=== PATIENT | male | born 1935 | race American Indian/Alaskan Native ===

== ENCOUNTER 2016-07-22 23:19 | Emergency (ER) | payer MEDICARE, OTHER ==
[2016-07-22 23:42] VITALS: RESP 20
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
[2016-07-23 02:30] VITALS: BP 146/73; PULSE 76; TEMP 97.5; O2SAT 97
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
== END 2016-07-23 02:55 | disposition home or self-care (01) ==
LOC: C.ER 23:19
DX: Z77.098 Contact with and (suspected) exposure to other hazardous, chiefly nonmedicinal, chemicals (principal)

== ENCOUNTER 2016-12-10 04:03 | Inpatient (IN) | payer MEDICARE, OTHER ==
[2016-12-10 05:15] LABS: BASO # 0.1 K/uL (0.0-0.2); LYMPH # 0.2 K/uL (1.0-4.3); MEAN CORPUSCULAR HGB CONC 33.2 g/dL (33.0-37.0)
[2016-12-10 05:23] LABS: BASO % 0.6 % (0.0-2.0); LYMPH % 1.4 % (20.0-40.0); MEAN CELL VOLUME 86.9 fL (80.0-94.0); MEAN CORPUSCULAR HEMOGLOBIN 28.9 pg (27.0-31.0); MEAN PLATELET VOLUME 8.8 fL (7.2-11.7); MONO # 0.2 K/uL (0.0-0.8); MONO % 1.4 % (0.0-10.0); NRBC % 0.1 % (0.0-2.0); PLATELET COUNT 153 K/uL (130-400); RED CELL DISTRIBUTION WIDTH 15.6 % (11.5-14.5); WHITE BLOOD COUNT 16.1 K/uL (4.8-10.8)
--- NOTE | 2016-12-10 06:12 | C.PDOC ---
History Of Present Illness As per EMS pt c/o of low abd pain, and constipation. Denies fever, vomiting, diarrhea. Time Seen by Provider: 12/10/16 04:21 Chief Complaint (Nursing): Abdominal Pain History Per: Patient History/Exam Limitations: other (? alzheimers) Current Symptoms Are (Timing): Still Present Past Medical History Vital Signs: Last Vital Signs Temp 99.8 F H 12/10/16 04:10 Pulse 89 12/10/16 04:10 Resp 18 12/10/16 04:10 BP 139/78 12/10/16 04:10 Pulse Ox 98 12/10/16 06:12 - Medical History PMH: Benign Prostatic Hyperplasia, HTN, Hyperlipidemia, Parkinson's Disease Family History: States: Unknown Family Hx - Social History Hx Alcohol Use: No Hx Substance Use: No - Immunization History Hx Tetanus Toxoid Vaccination: No Hx Influenza Vaccination: No Hx Pneumococcal Vaccination: No Review Of Systems Constitutional: Negative for: Fever, Chills Gastrointestinal: Positive for: Abdominal Pain (lower ), Constipation (few days) . Negative for: Nausea, Vomiting Genitourinary: Negative for: Dysuria, Hematuria Physical Exam - Physical Exam Appears: Well, No Acute Distress Skin: Normal Color Head: Atraumatic Eye(s): bilateral: Normal Inspection, PERRL Oral Mucosa: Moist Cardiovascular: Rhythm Regular Respiratory: Normal Breath Sounds, No Rales, No Wheezing Gastrointestinal/Abdominal: Distention (protrusion to entire lower abd- firm mass), No Guarding, No Rebound Back: Normal Inspection, No CVA Tenderness Neurological/Psych: No Oriented x3 (Pt alert and oriented to person, not to place and time) ED Course And Treatment - Laboratory Results Result Diagrams: 12/10/16 05:11 12/10/16 05:11 O2 Sat by Pulse Oximetry: 98 Pulse Ox Interpretation: Normal - Other Rad Obstructive series X-Ray: Interpreted by Me, Viewed By Me Interpretation: Distended loops of bowels , no stool impaction. CXR normal Progress Note: Pending labs, and CT . Pt s/o to HARRY valladares. Pt with WBC 16.1, and K 2.9 and KCl PO. Will follow up with PMD Disposition - Disposition Disposition Time: 07:12 Condition: STABLE Forms: Tern (Slovak) - Clinical Impression Clinical Impression: Abdominal pain, Abdominal distension Physician Patient Turnover Patient Signed Over To: Chichi Valladares Handoff Comments: Pending CT and admission
[2016-12-10 06:16] LABS: ALKALINE PHOSPHATASE 321 U/L (38-126); ALT/SGPT 79 U/L (21-72); AST/SGOT 88 U/L (17-59); BILIRUBIN,TOTAL 5.2 mg/dL (0.2-1.3); BLOOD UREA NITROGEN 16 mg/dL (9-20); CALCIUM 7.9 mg/dl (8.6-10.4); CARBON DIOXIDE 30 mmol/L (22-30); CHLORIDE 89 mmol/L (98-107); GFR AFRICAN-AMERICAN > 60; GLUCOSE,RANDOM 115 mg/dL (75-110); POTASSIUM 2.9 mmol/L (3.6-5.2); SODIUM 134 mmol/L (132-148)
[2016-12-10 06:18] LABS: TOTAL PROTEIN 6.1 g/dL (6.3-8.3)
[2016-12-10] MEDS ORDERED: Iodixanol 320 MG/ML 100 ML BOTTLE IV ONE (06:37)
[2016-12-10 06:43] LABS: RBC URINE 2 /hpf (0-3); URINE BACTERIA RARE (<OCC); URINE BILIRUBIN 2+ (NEGATIVE); URINE BLOOD NEGATIVE (NEGATIVE); URINE COLOR Amber (YELLOW); URINE GLUCOSE (UA) NORMAL (Normal); URINE KETONE NEGATIVE (NEGATIVE); URINE LEUKOCYTE ESTERASE NEG Leu/uL (Negative); URINE PROTEIN 1+ mg/dL (NEGATIVE); WBC URINE 5 /hpf (0-5)
[2016-12-10] MEDS ORDERED: Potassium Chloride 20 mEq/15 ml LIQ UD PO STA (06:51)
[2016-12-10] MEDS ORDERED: Potassium Chloride 20 mEq/15 ml LIQ UD ONE (06:57)
[2016-12-10 07:15] LABS: NEUTROPHIL 95 % (50-75); TOTAL CELLS COUNTED 100
--- NOTE | 2016-12-10 07:41 | CT ---
EXAM: CT Abdomen and Pelvis With Intravenous Contrast CLINICAL HISTORY: 81 years old, male; Signs and symptoms; Other: Distention; Additional info: Abd pain , abd distention TECHNIQUE: Axial computed tomography images of the abdomen and pelvis with intravenous contrast. This CT exam was performed using one or more of the following dose reduction techniques: automated exposure control, adjustment of the mA and/or kV according to patient size, and/or use of iterative reconstruction technique. Coronal and sagittal reformatted images were created and reviewed. CONTRAST: 100 mL of [id number] administered intravenously. EXAM DATE/TIME: 12/10/2016 6:17 AM COMPARISON: No relevant prior studies available. FINDINGS: Lower thorax: No acute findings. ABDOMEN: Liver: 6 mm cyst right lobe liver. Gallbladder and bile ducts: Intrahepatic and extrahepatic biliary dilatation. Common bile duct measures up to 14 mm in diameter. No calcified gallstone. Pancreas: Unremarkable. No mass. No ductal dilation. Spleen: Unremarkable. No splenomegaly. Adrenals: Unremarkable. No mass. Kidneys and ureters: 3.3 cm right renal cyst. No hydronephrosis. Stomach and bowel: Unremarkable. No dilatation of small or large bowel. No mucosal thickening. Appendix: No findings to suggest acute appendicitis. PELVIS: Bladder: Unremarkable. No mass. Reproductive: Unremarkable as visualized. ABDOMEN and PELVIS: Intraperitoneal space: Small amount of free fluid in the dependent pelvis. No free air. Bones/joints: Levoscoliosis lumbar spine. Degenerative disc and facet joint disease. Soft tissues: Unremarkable. Vasculature: Moderate atherosclerotic vascular calcifications. No abdominal aortic aneurysm. Lymph nodes: No enlarged lymph nodes. IMPRESSION: 1. Biliary dilatation with common bile duct are measuring up to 14 mm. Differential considerations to include poorly radiopaque common bile duct stone, occult pancreatic or ampullary mass. 2. Small ascites. 3. Hepatic and renal cysts
[2016-12-10] MEDS ORDERED: Sodium Chloride 0.9% 1,000 ML IV SCH (08:00)
[2016-12-10] MEDS ORDERED: Sodium Chloride 0.9% 1,000 ML IV ONE (08:00)
[2016-12-10] MEDS ORDERED: Sodium Chloride 0.9% 1,000 ML ONE ×2 (08:24→08:55)
[2016-12-10 09:17] LABS: VENOUS BLOOD GAS BASE EXCESS 9.9 mmol/L (0.0-2.0); VENOUS BLOOD GAS PCO2 53 mmHg (40-60); VENOUS BLOOD PH 7.44 (7.32-7.43)
[2016-12-10 09:19] LABS: MAGNESIUM 1.7 mg/dL (1.6-2.3)
--- NOTE | 2016-12-10 09:31 | CP.PCM.HP ---
History of Present Illness - History of Present Illness History of Present Illness: 81 yo with PMH Hypertension BPH no DM no surgery history smoking patient was brought in by EMS due to abdominal pain and weakness Patient had lost follow up in the clinic last office visit was last year but saw Urologist this year for BPH follow up- nothing unusual, he is on med- but was noticed to be disheveled , had lost weight , and I was notified about his observation. I tried to call patient , said they will come when able. Present on Admission - Present on Admission Any Indicators Present on Admission: No History of DVT/PE: No History of Uncontrolled Diabetes: No Urinary Catheter: No Decubitus Ulcer Present: No Review of Systems - Constitutional Constitutional: Lethargy (patient- had medication- and is sedated- reported by nurse that he was agitated fighthing , ), Weight Loss - EENT Eyes: absent: Other Visual Disturbances Ears: Abnormal Hearing Nose/Mouth/Throat: absent: Nasal Congestion, Sore Throat, Neck Pain - Cardiovascular Cardiovascular: absent: Chest Pain, Pedal Edema, Syncope - Respiratory Respiratory: absent: Cough, Dyspnea on Exertion, Wheezing - Gastrointestinal Gastrointestinal: Abdominal Pain. absent: Diarrhea, Vomiting - Genitourinary Genitourinary: Urinary Frequency - Musculoskeletal Musculoskeletal: absent: Abnormal Gait, Deformity, Joint Swelling - Integumentary Integumentary: absent: Rash, Skin Ulcer, Sores - Neurological Neurological: absent: Abnormal Movements, Abnormal Speech, Convulsions - Psychiatric Psychiatric: absent: Behavioral Changes - Hematologic/Lymphatic Hematologic: absent: Easy Bleeding, Easy Bruising Past Patient History - Infectious Disease Hx of Infectious Diseases: None - Past Social History Smoking Status: Heavy Smoker > 10 Cigarettes Daily - CARDIAC Hx Hypertension: Yes - NEUROLOGICAL Hx Parkinson's Disease: Yes - MUSCULOSKELETAL/RHEUMATOLOGICAL Hx Unsteady Gait: Yes - PSYCHIATRIC Hx Substance Use: No - SURGICAL HISTORY Hx Surgeries: No - ANESTHESIA Hx Anesthesia: No Meds Allergies/Adverse Reactions: Allergies Allergy/AdvReac Type Severity Reaction Status Date / Time No Known Allergies Allergy Verified 12/10/16 04:07 Physical Exam - Constitutional Appears: No Acute Distress - Head Exam Head Exam: ATRAUMATIC, NORMOCEPHALIC - Eye Exam Eye Exam: Normal appearance. absent: Nystagmus - ENT Exam ENT Exam: Mucous Membranes Dry - Neck Exam Neck exam: Positive for: Full Rom - Respiratory Exam Respiratory Exam: Clear to Auscultation Bilateral, NORMAL BREATHING PATTERN. absent: Wheezes - GI/Abdominal Exam GI & Abdominal Exam: Normal Bowel Sounds, Soft. absent: Distended, Tenderness - Extremities Exam Extremities exam: Negative for: joint swelling, pedal edema - Back Exam Back exam: absent: rash noted - Neurological Exam Neurological exam: Altered (SEDATED NOW ) - Skin Skin Exam: Intact, Normal Color Results - Vital Signs Recent Vital Signs: Last Vital Signs Temp 101.2 F H 12/10/16 08:11 Pulse 94 H 12/10/16 08:29 Resp 22 12/10/16 08:29 BP 138/52 L 12/10/16 08:29 Pulse Ox 100 12/10/16 08:53 - Labs Result Diagrams: 12/11/16 07:59 12/11/16 07:59 Labs: Laboratory Results - last 24 hr 12/10/16 09:13 pO2 18 L VBG pH 7.44 H VBG pCO2 53 VBG HCO3 30.8 VBG Total CO2 37.6 H VBG O2 Sat (Calc) 35.0 L VBG Base Excess 9.9 H VBG Potassium 3.1 L Sodium 137.0 Chloride 100.0 Glucose 96 Lactate 1.8 Venous Blood Potassium 3.1 L Assessment & Plan - Assessment and Plan (Free Text) Assessment: Patient with PMH HYPertension- who lost follow ups disheveled, weight loss-brought to ER due to abdominal pain- CHOLELITHIASIS CBD DILATATION= WILL CONSULT SIURGERY DEHYDRATION- FLUID NPO TEMPORARILY HYPERTENSION TO MONITOR WILL EVALUATE MENTAL FUNCTION WHEN FULLY AWAKE HYPOKALEMIA SUPPLEMENTATION
[2016-12-10] MEDS ORDERED: Piperacillin/Tazobact 3.375 gm 100 ML IVPB ONE (09:42)
[2016-12-10] MEDS: Sodium Chloride 0.9% 1,000 ML IV SCH ×2 (10:36→17:21)
[2016-12-10] MEDS: Piperacillin/Tazobact 3.375 GM in Sodium Chloride 100 ML IVPB SCH ×2 (10:37→20:16)
[2016-12-10] MEDS ORDERED: Vancomycin 1 GM 1 GM/250 ML BAG IVPB ONE (11:12)
--- NOTE | 2016-12-10 11:40 | US ---
HISTORY: abnl lft, biliary dilation, elevated wbc COMPARISON: CT abdomen and pelvis with contrast performed 12/10/16 TECHNIQUE: Sonographic evaluation of the abdomen. FINDINGS: Examination limited by patient condition, difficulty to breath hold, or position. LIVER: Measures 16.5 cm in sagittal dimension. Hepatic cysts demonstrated by CT are not appreciated on the submitted sonographic views. Intrahepatic bile duct dilatation. The main portal vein appears patent with normal directional flow. GALLBLADDER: Irregular appearance of the gallbladder wall with evidence of septation near the fundus. No gallstones. No gallbladder wall thickening. Negative sonographic Redd's sign as assessed by the utility locator. COMMON BILE DUCT: Measures 1.5 cm. PANCREAS: Not well visualized. RIGHT KIDNEY: Measures approximately 10.2 x 4.5 x 5.3cm. No obstructing calculus or hydronephrosis identified. 3.9 x 2.4 x 3.7 cm mid to lower pole renal cyst. LEFT KIDNEY: Limited visualization. Measures approximately 8.0 x 4.2 x 4.2 cm. No obstructing calculus or hydronephrosis identified. SPLEEN: Not visualized. AORTA: Limited visualization. Measures approximately 2.3 cm in AP dimension proximally. The distal aorta is not visualized. IVC: Limited views appear unremarkable. OTHER FINDINGS: Small ascites. IMPRESSION: Limited study. Dilated common bile duct. Intrahepatic biliary ductal dilatation. Irregular appearance of the gallbladder wall with evidence of septation near the fundus. Small ascites. 3.9 cm mid to lower pole right renal cyst. Hepatic cyst demonstrated by CT is not appreciated on the limited submitted views.
--- NOTE | 2016-12-10 11:45 | CP.PCM.CON ---
History of Present Illness - History of Present Illness History of Present Illness: General Surgery- Dr. Cee CC: Abd pain 81 Presented to the ED with abdominal pain that was initially described as Epigastric. Pt was being combative and was given Haldol. During encounter Pt was a poor historian. Most information was received from via telephone. Pt responsive to noxious stimuli. Currently unkept, jaundiced, with guarding of the RUQ. ROS: unable to obtain due to pt being sedated PMH: HTN, enlarged prostate, hypovitamintosis D, Parkinson PSH: none ALL: NKDA SocialHx: tobacco use Review of Systems - Review of Systems All systems: reviewed and no additional remarkable complaints except Past Patient History - Infectious Disease Hx of Infectious Diseases: None - Past Social History Smoking Status: Heavy Smoker > 10 Cigarettes Daily - CARDIAC Hx Hypertension: Yes - NEUROLOGICAL Hx Parkinson's Disease: Yes - MUSCULOSKELETAL/RHEUMATOLOGICAL Hx Unsteady Gait: Yes - PSYCHIATRIC Hx Substance Use: No - SURGICAL HISTORY Hx Surgeries: No - ANESTHESIA Hx Anesthesia: No Meds Allergies/Adverse Reactions: Allergies Allergy/AdvReac Type Severity Reaction Status Date / Time No Known Allergies Allergy Verified 12/10/16 04:07 - Medications Medications: Current Medications Famotidine (Pepcid) 20 mg IVP DAILY [facility] Last Admin: 12/10/16 11:15 Dose: 20 mg Sodium Chloride (Sodium Chloride 0.9%) 1,000 mls @ 100 mls/hr IV .Q10H [facility] Last Admin: 12/10/16 10:36 Dose: 100 mls/hr Piperacillin Sod/Tazobactam (Sod 3.375 gm/ Sodium Chloride) 100 mls @ 200 mls/ hr IVPB Q6H [facility] Last Admin: 12/10/16 10:37 Dose: 200 mls/hr Physical Exam - Constitutional Appears: No Acute Distress, Unkempt, Combative, Chronically Ill - Eye Exam Eye Exam: absent: EOMI Additional comments: scleral icterus - Neck Exam Neck exam: Negative for: Lymphadenopathy - Respiratory Exam Respiratory Exam: NORMAL BREATHING PATTERN. absent: Accessory Muscle Use, Rales , Rhonchi, Wheezes - Cardiovascular Exam Cardiovascular Exam: +S1, +S2 - GI/Abdominal Exam GI & Abdominal Exam: Guarding, Normal Bowel Sounds, Soft, Tenderness. absent: Bruit, Distended, Rigid Additional comments: Guarding in the RUQ. TTP mid epigastric and RUQ. unable to asses for curtis sign. - Extremities Exam Extremities exam: Positive for: pedal pulses present. Negative for: calf tenderness, tenderness - Neurological Exam Neurological exam: Altered - Skin Additional comments: bilateral patellar wounds. seems to be in recovering stages from abrasions Results - Vital Signs Recent Vital Signs: Last Vital Signs Temp 100.9 F H 12/10/16 10:44 Pulse 95 H 12/10/16 10:22 Resp 21 12/10/16 10:22 BP 146/71 12/10/16 10:22 Pulse Ox 95 12/10/16 10:22 - Labs Result Diagrams: 12/10/16 05:11 12/10/16 05:11 Labs: Laboratory Results - last 24 hr 12/10/16 09:13 pO2 18 L VBG pH 7.44 H VBG pCO2 53 VBG HCO3 30.8 VBG Total CO2 37.6 H VBG O2 Sat (Calc) 35.0 L VBG Base Excess 9.9 H VBG Potassium 3.1 L Sodium 137.0 Chloride 100.0 Glucose 96 Lactate 1.8 Venous Blood Potassium 3.1 L Assessment & Plan - Assessment and Plan (Free Text) Assessment: 81M w/ abdominal pain and jaundice Plan: - f/u US results - GI consult for ERCP * CBD dilatation approx 1.4cm - IVF/Abx - pain control - no acute surgical intervention at this time will d/w Dr. Jaye Stinson PGY1
[2016-12-10] MEDS ORDERED: MethylPREDNISolone 40 mg Vial IVP STA (12:08)
--- NOTE | 2016-12-10 12:10 | CP.PCM.PN ---
Objective - Vital Signs/Intake and Output Vital Signs (last 24 hours): Temp Pulse Resp BP Pulse Ox 100.9 F H 77 19 156/73 H 97 12/10/16 10:44 12/10/16 11:28 12/10/16 11:28 12/10/16 11:28 12/10/16 11:28 - Medications Medications: Current Medications Famotidine (Pepcid) 20 mg IVP DAILY [facility] Last Admin: 12/10/16 11:15 Dose: 20 mg Sodium Chloride (Sodium Chloride 0.9%) 1,000 mls @ 100 mls/hr IV .Q10H [facility] Last Admin: 12/10/16 10:36 Dose: 100 mls/hr Piperacillin Sod/Tazobactam (Sod 3.375 gm/ Sodium Chloride) 100 mls @ 200 mls/ hr IVPB Q6H [facility] Last Admin: 12/10/16 10:37 Dose: 200 mls/hr Methylprednisolone (Solu-Medrol) 40 mg IVP STAT [facility]A Stop: 12/10/16 12:09
--- NOTE | 2016-12-10 12:49 | RAD ---
PROCEDURE: Radiographs of the chest and abdomen (obstructive series) HISTORY: abd pain COMPARISON: No prior. TECHNIQUE: AP radiograph of the chest, with upright and supine radiographs of the abdomen. FINDINGS: CHEST: Lungs: Clear. Cardiovascular: Normal size heart. No pulmonary vascular congestion. Pleura: No pleural fluid. No pneumothorax. Other findings: None. ABDOMEN AND PELVIS: Bowel: Unremarkable bowel gas pattern. No evidence of mechanical obstruction. Free air: None. Bones: Unremarkable. Other findings: None. IMPRESSION: Unremarkable radiographs of chest and abdomen. No evidence of mechanical bowel obstruction. Concordant results with the preliminary interpretation rendered by the emergency department physician procedure.
--- NOTE | 2016-12-10 15:54 | CP.PCM.CON ---
History of Present Illness - History of Present Illness History of Present Illness: CC: Dilated CBD HPI: 81 year old man admitted via the ER for abdominal pain. CT and Sono show dilated CBD and intrahepatic bile ducts, without mass lesions or obvious gallstones. Patient has low grade fevers, leukocytosis, and jaundice, with elevation in LFTs predominantly in a cholestatic pattern. The patient was begun on Zosyn, and seen by surgery who recommends GI consult for ERCP. The patient can not provide any history, he is nearly obtunded. He received Haldol for agitation. Review of Systems - Review of Systems Systems not reviewed;Unavailable: Altered Mental Status, Uncooperative Past Patient History - Infectious Disease Hx of Infectious Diseases: None - Past Social History Smoking Status: Heavy Smoker > 10 Cigarettes Daily - CARDIAC Hx Hypertension: Yes - NEUROLOGICAL Hx Parkinson's Disease: Yes - MUSCULOSKELETAL/RHEUMATOLOGICAL Hx Unsteady Gait: Yes - PSYCHIATRIC Hx Substance Use: No - SURGICAL HISTORY Hx Surgeries: No - ANESTHESIA Hx Anesthesia: No Meds Allergies/Adverse Reactions: Allergies Allergy/AdvReac Type Severity Reaction Status Date / Time No Known Allergies Allergy Verified 12/10/16 04:07 - Medications Medications: Current Medications Acetaminophen (Tylenol 650 Mg Supp) 650 mg [place] Q4 PRN PRN Reason: Fever >100.4 F Famotidine (Pepcid) 20 mg IVP DAILY [facility] Last Admin: 12/10/16 11:15 Dose: 20 mg Sodium Chloride (Sodium Chloride 0.9%) 1,000 mls @ 100 mls/hr IV .Q10H [facility] Last Admin: 12/10/16 10:36 Dose: 100 mls/hr Piperacillin Sod/Tazobactam (Sod 3.375 gm/ Sodium Chloride) 100 mls @ 200 mls/ hr IVPB Q6H [facility] Last Admin: 12/10/16 10:37 Dose: 200 mls/hr Potassium Chloride (Potassium Chloride 20 Meq/100 Ml) 20 meq in 100 mls @ 30 mls/hr IVPB ONCE ONE Stop: 12/10/16 16:06 Ibuprofen (Motrin Tab) 400 mg PO Q6 PRN PRN Reason: Fever >100.4 F Physical Exam - Constitutional Appears: Chronically Ill - Head Exam Additional comments: Bitemporal wasting - Eye Exam Additional comments: uncooperative - Neck Exam Neck exam: Positive for: Full Rom. Negative for: Lymphadenopathy, Tenderness - Respiratory Exam Respiratory Exam: NORMAL BREATHING PATTERN - Cardiovascular Exam Cardiovascular Exam: REGULAR RHYTHM - GI/Abdominal Exam GI & Abdominal Exam: Soft, Tenderness. absent: Mass, Organomegaly, Rebound ( RUQ tenderness. Normal bowel sounds) - Extremities Exam Extremities exam: Negative for: calf tenderness - Back Exam Back exam: NORMAL INSPECTION - Neurological Exam Neurological exam: Altered - Psychiatric Exam Psychiatric exam: Flat Affect - Skin Skin Exam: Warm Results - Vital Signs Recent Vital Signs: Last Vital Signs Temp 100.5 F H 12/10/16 13:33 Pulse 73 12/10/16 13:33 Resp 16 12/10/16 13:33 BP 151/73 H 12/10/16 13:33 Pulse Ox 97 12/10/16 11:28 - Labs Result Diagrams: 12/10/16 05:11 12/10/16 05:11 Labs: Laboratory Results - last 24 hr 12/10/16 09:13 pO2 18 L VBG pH 7.44 H VBG pCO2 53 VBG HCO3 30.8 VBG Total CO2 37.6 H VBG O2 Sat (Calc) 35.0 L VBG Base Excess 9.9 H VBG Potassium 3.1 L Sodium 137.0 Chloride 100.0 Glucose 96 Lactate 1.8 Venous Blood Potassium 3.1 L Assessment & Plan (1) Abdominal pain Assessment and Plan: RUQ pain with biliary obstruction R/O CBD Stone or cholangitis Rec: Antibiotics, follow LFTs, NPO Status: Acute (2) Abnormal liver function tests Assessment and Plan: Discussed with biliary endoscopist for ERCP will check MRCP first, if patient can cooperate. Status: Acute - Date & Time Date: 12/10/16 Time: 15:58
--- NOTE | 2016-12-10 17:46 | CP.PCM.CON ---
<Eliud Simmons - Last Filed: 12/10/16 17:47> History of Present Illness - History of Present Illness History of Present Illness: PGY 4 GI Initial Consult Note Consulting Physician: Dr. Robertson Reason for consult dilated CBD Schuyler Don is a 81 year old man w/ hx of dementia, non-verbal who was admitted for for abdominal pain. Pt is non-verbal at this time and all information was obtained from MR and Dr. Robertson. Imaging including CT abd and ultrasound revealed dilated CBD and intrahepatic bile ducts, without mass lesions or obvious gallstones. Patient has low grade fevers, leukocytosis, and jaundice, with elevation in LFTs predominantly in a cholestatic pattern. The patient was begun on Zosyn, and seen by surgery who recommends GI consult for ERCP. The patient can not provide any history, he is nearly obtunded. He received Haldol for agitation. Unaware of any sig endoscopy hx. PMH: HTN, enlarged prostate, hypovitamintosis D, Parkinson PSH: none ALL: NKDA SocialHx: tobacco use Endoscopy hx: unknown Past Patient History - Infectious Disease Hx of Infectious Diseases: None - Past Social History Smoking Status: Heavy Smoker > 10 Cigarettes Daily - CARDIAC Hx Hypertension: Yes - NEUROLOGICAL Hx Parkinson's Disease: Yes - MUSCULOSKELETAL/RHEUMATOLOGICAL Hx Unsteady Gait: Yes - PSYCHIATRIC Hx Substance Use: No - SURGICAL HISTORY Hx Surgeries: No - ANESTHESIA Hx Anesthesia: No Meds Allergies/Adverse Reactions: Allergies Allergy/AdvReac Type Severity Reaction Status Date / Time No Known Allergies Allergy Verified 12/10/16 04:07 - Medications Medications: Current Medications Acetaminophen (Tylenol 650 Mg Supp) 650 mg [place] Q4 PRN PRN Reason: Fever >100.4 F Famotidine (Pepcid) 20 mg IVP DAILY [facility] Last Admin: 12/10/16 11:15 Dose: 20 mg Sodium Chloride (Sodium Chloride 0.9%) 1,000 mls @ 100 mls/hr IV .Q10H [facility] Last Admin: 12/10/16 17:21 Dose: 100 mls/hr Piperacillin Sod/Tazobactam (Sod 3.375 gm/ Sodium Chloride) 100 mls @ 200 mls/ hr IVPB Q6H [facility] Last Admin: 12/10/16 10:37 Dose: 200 mls/hr Ibuprofen (Motrin Tab) 400 mg PO Q6 PRN PRN Reason: Fever >100.4 F Physical Exam - Head Exam Head Exam: ATRAUMATIC, NORMOCEPHALIC - Eye Exam Eye Exam: Scleral icterus - Respiratory Exam Respiratory Exam: Clear to Auscultation Bilateral, Rales, Rhonchi, Wheezes, Respiratory Distress, NORMAL BREATHING PATTERN - Cardiovascular Exam Cardiovascular Exam: REGULAR RHYTHM, +S1, +S2 - GI/Abdominal Exam GI & Abdominal Exam: Guarding, Normal Bowel Sounds, Soft, Tenderness (LUQ). absent: Distended, Organomegaly, Rebound - Extremities Exam Extremities exam: Negative for: joint swelling, pedal edema - Neurological Exam Neurological exam: Altered - Skin Skin Exam: Dry, Intact, Normal Color, Warm Results - Vital Signs Recent Vital Signs: Last Vital Signs Temp 98.6 F 12/10/16 15:53 Pulse 64 12/10/16 15:53 Resp 20 12/10/16 15:53 BP 155/82 H 12/10/16 15:53 Pulse Ox 97 12/10/16 11:28 - Labs Result Diagrams: 12/10/16 05:11 12/10/16 05:11 Labs: Laboratory Results - last 24 hr 12/10/16 09:13 pO2 18 L VBG pH 7.44 H VBG pCO2 53 VBG HCO3 30.8 VBG Total CO2 37.6 H VBG O2 Sat (Calc) 35.0 L VBG Base Excess 9.9 H VBG Potassium 3.1 L Sodium 137.0 Chloride 100.0 Glucose 96 Lactate 1.8 Venous Blood Potassium 3.1 L Assessment & Plan - Assessment and Plan (Free Text) Assessment: Schuyler Don is a 81M w/ hx of dementia, HTN, and parkinsons who presentd to the ED with complaints of Abd pain. PT was found to have a dilated CBD and intrahepatic ducts with no obvious stone. 1. Abd pain likely 2/2 biliary obstruction 2. Possible Cholangitis 3. Dilated CBD and intrahepatic ducts likely 2/2 biliary obstruction, etiology unknown at this time DDX: stricture, mass, stone 4. Transaminemia likely 2/2 cholestatis from CBD obstruction 5. AMS Plan: -continue IV fluids -closely monitor, if pt worsens or becomes hemodynamically unstable consider ICU eval - agree wit zosyn IV - will eventually need ERCP and EUS to eval pancreas and CBD -continue to monitor LFTs -will tentatively plan for ERCP/EUS later this week -if clinically worse may warrant an emergent ERCP D/w Dr. Shine <Gab Shine - Last Filed: 12/10/16 19:23> Meds - Medications Medications: Current Medications Acetaminophen (Tylenol 650 Mg Supp) 650 mg [place] Q4 PRN PRN Reason: Fever >100.4 F Famotidine (Pepcid) 20 mg IVP DAILY [facility] Last Admin: 12/10/16 11:15 Dose: 20 mg Sodium Chloride (Sodium Chloride 0.9%) 1,000 mls @ 100 mls/hr IV .Q10H [facility] Last Admin: 12/10/16 17:21 Dose: 100 mls/hr Piperacillin Sod/Tazobactam (Sod 3.375 gm/ Sodium Chloride) 100 mls @ 200 mls/ hr IVPB Q6H [facility] Last Admin: 12/10/16 10:37 Dose: 200 mls/hr Ibuprofen (Motrin Tab) 400 mg PO Q6 PRN PRN Reason: Fever >100.4 F Results - Vital Signs Recent Vital Signs: Last Vital Signs Temp 98.6 F 12/10/16 15:53 Pulse 64 12/10/16 15:53 Resp 20 12/10/16 15:53 BP 155/82 H 12/10/16 15:53 Pulse Ox 98 12/10/16 14:00 - Labs Result Diagrams: 12/10/16 05:11 12/10/16 05:11 Labs: Laboratory Results - last 24 hr 12/10/16 09:13 pO2 18 L VBG pH 7.44 H VBG pCO2 53 VBG HCO3 30.8 VBG Total CO2 37.6 H VBG O2 Sat (Calc) 35.0 L VBG Base Excess 9.9 H VBG Potassium 3.1 L Sodium 137.0 Chloride 100.0 Glucose 96 Lactate 1.8 Venous Blood Potassium 3.1 L Attending/Attestation - Attestation I have personally seen and examined this patient.: Yes I have fully participated in the care of the patient.: Yes I have reviewed all pertinent clinical information: Yes Notes (Text): 12/10/16 19:21 81 year old male with dementia admitted with jaundice, biliary dilation, likely biliary obstruction. Patient unable to provide any history. 1. Biliary obstruction 2. Jaundice Plan: -uncertain etiology -CT / US reviewed -recommend MRCP to evaluation further -no pancreas mass -dilated CBD to 1.5 cm -no definite choledocholithiasis on CT, but may not be apparent on CT -recommend antibiotics in the meantime
--- NOTE | 2016-12-10 18:44 | CP.PCM.CON ---
History of Present Illness - History of Present Illness History of Present Illness: agree with plan as noted by Gi Past Patient History - Infectious Disease Hx of Infectious Diseases: None - Past Social History Smoking Status: Heavy Smoker > 10 Cigarettes Daily - CARDIAC Hx Hypertension: Yes - NEUROLOGICAL Hx Parkinson's Disease: Yes - MUSCULOSKELETAL/RHEUMATOLOGICAL Hx Unsteady Gait: Yes - PSYCHIATRIC Hx Substance Use: No - SURGICAL HISTORY Hx Surgeries: No - ANESTHESIA Hx Anesthesia: No Meds Allergies/Adverse Reactions: Allergies Allergy/AdvReac Type Severity Reaction Status Date / Time No Known Allergies Allergy Verified 12/10/16 04:07 - Medications Medications: Current Medications Acetaminophen (Tylenol 650 Mg Supp) 650 mg [place] Q4 PRN PRN Reason: Fever >100.4 F Famotidine (Pepcid) 20 mg IVP DAILY [facility] Last Admin: 12/10/16 11:15 Dose: 20 mg Sodium Chloride (Sodium Chloride 0.9%) 1,000 mls @ 100 mls/hr IV .Q10H [facility] Last Admin: 12/10/16 17:21 Dose: 100 mls/hr Piperacillin Sod/Tazobactam (Sod 3.375 gm/ Sodium Chloride) 100 mls @ 200 mls/ hr IVPB Q6H [facility] Last Admin: 12/10/16 10:37 Dose: 200 mls/hr Ibuprofen (Motrin Tab) 400 mg PO Q6 PRN PRN Reason: Fever >100.4 F Results - Vital Signs Recent Vital Signs: Last Vital Signs Temp 98.6 F 12/10/16 15:53 Pulse 64 12/10/16 15:53 Resp 20 12/10/16 15:53 BP 155/82 H 12/10/16 15:53 Pulse Ox 97 12/10/16 11:28 - Labs Result Diagrams: 12/10/16 05:11 12/10/16 05:11 Labs: Laboratory Results - last 24 hr 12/10/16 09:13 pO2 18 L VBG pH 7.44 H VBG pCO2 53 VBG HCO3 30.8 VBG Total CO2 37.6 H VBG O2 Sat (Calc) 35.0 L VBG Base Excess 9.9 H VBG Potassium 3.1 L Sodium 137.0 Chloride 100.0 Glucose 96 Lactate 1.8 Venous Blood Potassium 3.1 L
[2016-12-11] MEDS: Sodium Chloride 0.9% 1,000 ML IV SCH ×2 (03:08→16:02)
[2016-12-11] MEDS: Piperacillin/Tazobact 3.375 GM in Sodium Chloride 100 ML IVPB SCH ×4 (03:37→20:30)
--- NOTE | 2016-12-11 08:12 | CARD ---
APPROVED REPORT EKG Measurement Heart [id number] <Conclusion> Sinus rhythm with premature supraventricular complexes and with frequent premature ventricular complexes Left axis deviation Left ventricular hypertrophy with repolarization abnormality Abnormal ECG
[2016-12-11 08:13] LABS: BASO % 0.2 % (0.0-2.0); LYMPH # 0.3 K/uL (1.0-4.3); LYMPH % 1.7 % (20.0-40.0); MEAN CELL VOLUME 87.2 fL (80.0-94.0); MEAN CORPUSCULAR HEMOGLOBIN 28.9 pg (27.0-31.0); MEAN CORPUSCULAR HGB CONC 33.2 g/dL (33.0-37.0); MEAN PLATELET VOLUME 8.8 fL (7.2-11.7); MONO # 0.6 K/uL (0.0-0.8); MONO % 3.8 % (0.0-10.0); NRBC % 0.1 % (0.0-2.0); PLATELET COUNT 134 K/uL (130-400); RED CELL DISTRIBUTION WIDTH 15.3 % (11.5-14.5); WHITE BLOOD COUNT 15.8 K/uL (4.8-10.8)
--- NOTE | 2016-12-11 08:15 | CP.PCM.PN ---
Subjective - Date & Time of Evaluation Date of Evaluation: 12/11/16 Time of Evaluation: 07:20 - Subjective Subjective: General Surgery Note Patient was seen and examined at bedside. Patient was awake, alert and able to respond to questions. Patient reports that he is doing well and has no complaints. Patient denies nausea, vomiting, abdominal pain, chest pain and SOB. Objective - Vital Signs/Intake and Output Vital Signs (last 24 hours): Temp Pulse Resp BP Pulse Ox 99.1 F 70 18 150/72 96 12/10/16 23:30 12/10/16 23:30 12/10/16 23:30 12/10/16 23:30 12/10/16 23:30 Intake and Output: 12/11/16 12/11/16 06:59 18:59 Intake Total 100 Balance 100 - Medications Medications: Current Medications Acetaminophen (Tylenol 650 Mg Supp) 650 mg [place] Q4 PRN PRN Reason: Fever >100.4 F Famotidine (Pepcid) 20 mg IVP DAILY [facility] Last Admin: 12/10/16 11:15 Dose: 20 mg Sodium Chloride (Sodium Chloride 0.9%) 1,000 mls @ 100 mls/hr IV .Q10H [facility] Last Admin: 12/11/16 03:08 Dose: 100 mls/hr Piperacillin Sod/Tazobactam (Sod 3.375 gm/ Sodium Chloride) 100 mls @ 200 mls/ hr IVPB Q6H [facility] Last Admin: 12/11/16 03:37 Dose: 200 mls/hr Ibuprofen (Motrin Tab) 400 mg PO Q6 PRN PRN Reason: Fever >100.4 F Pneumococcal Polyvalent Vaccine (Pneumovax 23 Vaccine) 0.5 ml IM .ONCE ONE Stop: 12/12/16 10:01 - Constitutional Appears: No Acute Distress - Eye Exam Eye Exam: EOMI - Respiratory Exam Respiratory Exam: Clear to Ausculation Bilateral, NORMAL BREATHING PATTERN - Cardiovascular Exam Cardiovascular Exam: REGULAR RHYTHM, +S1, +S2 - GI/Abdominal Exam GI & Abdominal Exam: Soft, Normal Bowel Sounds. absent: Distended, Tenderness - Extremities Exam Extremities Exam: absent: Pedal Edema, Tenderness - Neurological Exam Neurological Exam: Alert, Awake - Skin Skin Exam: Normal Color, Warm Assessment and Plan - Assessment and Plan (Free Text) Assessment: 81 year old male with abdominal pain and jaundice with: * Abdominal ultrasound showing dilated common bile duct, Intrahepatic biliary ductal dilatation. Irregular appearance of the gallbladder wall with evidence of septation near the fundus. * Abdomen CT/Pelvis showing Biliary dilatation with common bile duct are measuring up to 14 mm. Differential considerations to include poorly radiopaque common bile duct stone, occult pancreatic or ampullary mass Plan: - Continue medical management with antibiotics and IV fluids * WBC count trending down -Continue to monitor for fever * Tylenol 650mg PO Q6 PRN - Continue to monitor and replete electrolytes - As per GI recommendation; possible MRCP today if patient is cooperative and ERCP by 12/14/2016 - Continue pain control - No acute surgical intervention at this time will d/w Dr. Cee
[2016-12-11 08:29] LABS: INR 1.4
--- NOTE | 2016-12-11 08:34 | CP.PCM.PN ---
<Eliud Simmons - Last Filed: 12/11/16 08:39> Subjective - Date & Time of Evaluation Date of Evaluation: 12/11/16 Time of Evaluation: 06:00 - Subjective Subjective: Pgy 4 GI follow-up Pt seen and examined bedside More alert and awake today still not oriented on to person Denies any pain Still NPO Denies any BRBPR or melena, or hematachezia No reported overnight events as per nursing staff ROS: 10 point ROS conducted neg other than what is stated above Objective - Vital Signs/Intake and Output Vital Signs (last 24 hours): Temp Pulse Resp BP Pulse Ox 99.1 F 70 18 150/72 96 12/10/16 23:30 12/10/16 23:30 12/10/16 23:30 12/10/16 23:30 12/10/16 23:30 Intake and Output: 12/11/16 12/11/16 06:59 18:59 Intake Total 100 Balance 100 - Medications Medications: Current Medications Acetaminophen (Tylenol 650 Mg Supp) 650 mg [place] Q4 PRN PRN Reason: Fever >100.4 F Famotidine (Pepcid) 20 mg IVP DAILY [facility] Last Admin: 12/10/16 11:15 Dose: 20 mg Sodium Chloride (Sodium Chloride 0.9%) 1,000 mls @ 100 mls/hr IV .Q10H [facility] Last Admin: 12/11/16 03:08 Dose: 100 mls/hr Piperacillin Sod/Tazobactam (Sod 3.375 gm/ Sodium Chloride) 100 mls @ 200 mls/ hr IVPB Q6H [facility] Last Admin: 12/11/16 03:37 Dose: 200 mls/hr Ibuprofen (Motrin Tab) 400 mg PO Q6 PRN PRN Reason: Fever >100.4 F Pneumococcal Polyvalent Vaccine (Pneumovax 23 Vaccine) 0.5 ml IM .ONCE ONE Stop: 12/12/16 10:01 - Labs Labs: 12/11/16 07:59 - Constitutional Appears: Well, No Acute Distress - Head Exam Head Exam: ATRAUMATIC, NORMOCEPHALIC - Eye Exam Eye Exam: Normal appearance - ENT Exam ENT Exam: Mucous Membranes Moist, Normal Exam - Respiratory Exam Respiratory Exam: Clear to Ausculation Bilateral, NORMAL BREATHING PATTERN. absent: Rhonchi, Wheezes, Respiratory Distress - Cardiovascular Exam Cardiovascular Exam: REGULAR RHYTHM, +S1, +S2 - GI/Abdominal Exam GI & Abdominal Exam: Soft, Normal Bowel Sounds. absent: Guarding, Rigid, Tenderness, Organomegaly - Neurological Exam Neurological Exam: Alert, Awake. absent: Oriented x3 - Psychiatric Exam Psychiatric exam: Manic, Normal Affect, Normal Mood - Skin Skin Exam: Dry, Intact, Normal Color, Warm Assessment and Plan - Assessment and Plan (Free Text) Assessment: Schuyler Don is a 81M w/ hx of dementia, HTN, and parkinsons who presentd to the ED with complaints of Abd pain. PT was found to have a dilated CBD and intrahepatic ducts with no obvious stone. 1. Abd pain likely 2/2 biliary obstruction; r/o cholangitis 2. Dilated CBD and intrahepatic ducts likely 2/2 biliary obstruction, etiology unknown at this time DDX: stricture, mass, stone 3. Transaminemia likely 2/2 cholestatis from CBD obstruction 4. AMS Plan: -continue IV fluids -closely monitor, if pt worsens or becomes hemodynamically unstable consider ICU eval -continue zosyn IV - will tentatively plan for ERCP and EUS to eval pancreas and CBD for tomorrow -NPO after midnight -hold any anticoag after midnight -continue to monitor LFTs D/W Dr. Lynne <Fox Lynne - Last Filed: 12/11/16 08:55> Objective - Vital Signs/Intake and Output Vital Signs (last 24 hours): Temp Pulse Resp BP Pulse Ox 99.1 F 70 18 150/72 96 12/10/16 23:30 12/10/16 23:30 12/10/16 23:30 12/10/16 23:30 12/10/16 23:30 Intake and Output: 12/11/16 12/11/16 06:59 18:59 Intake Total 100 Balance 100 - Medications Medications: Current Medications Acetaminophen (Tylenol 650 Mg Supp) 650 mg [place] Q4 PRN PRN Reason: Fever >100.4 F Famotidine (Pepcid) 20 mg IVP DAILY [facility] Last Admin: 12/10/16 11:15 Dose: 20 mg Sodium Chloride (Sodium Chloride 0.9%) 1,000 mls @ 100 mls/hr IV .Q10H [facility] Last Admin: 12/11/16 03:08 Dose: 100 mls/hr Piperacillin Sod/Tazobactam (Sod 3.375 gm/ Sodium Chloride) 100 mls @ 200 mls/ hr IVPB Q6H [facility] Last Admin: 12/11/16 03:37 Dose: 200 mls/hr Ibuprofen (Motrin Tab) 400 mg PO Q6 PRN PRN Reason: Fever >100.4 F Pneumococcal Polyvalent Vaccine (Pneumovax 23 Vaccine) 0.5 ml IM .ONCE ONE Stop: 12/12/16 10:01 - Labs Labs: 12/11/16 07:59 12/11/16 07:59 Attending/Attestation - Attestation I have personally seen and examined this patient.: Yes I have fully participated in the care of the patient.: Yes I have reviewed all pertinent clinical information, including history, physical exam and plan: Yes Notes (Text): 12/11/16 08:48 I have seen and examined patient with GI fellow. No acute events overnight. He is not able to fully participate in meaningful conversation, though appears to be more alert than previous day. According to nursing staff, no reported abdominal pain, nausea, vomiting, fever/chills. Dementia HTN Parkinson's disease Altered mental status, sepsis Biliary dilation with unclear etiology - NPO - Continue with IVF hydration therapy - Continue with antibiotic therapy, follow up blood culture results - Obtain INR/PTT - Continue to monitor and replete electrolytes - LFTs stable, continue to monitor - MRCP ordered by primary GI team, follow up results - Patient will likely require EUS +/- ERCP for further evaluation of biliary obstruction, timing to be determined pending patient clinical progress
[2016-12-11 08:37] LABS: CHLORIDE 96 mmol/L (98-107); POTASSIUM 2.8 mmol/L (3.6-5.2); SODIUM 140 mmol/L (132-148)
[2016-12-11 08:39] LABS: CARBON DIOXIDE 30 mmol/L (22-30); GFR AFRICAN-AMERICAN > 60
[2016-12-11 08:40] LABS: ALB/GLOB RATIO 0.9 (1.0-2.1); ALKALINE PHOSPHATASE 249 U/L (38-126); ALT/SGPT 70 U/L (21-72); AST/SGOT 55 U/L (17-59); BLOOD UREA NITROGEN 9 mg/dL (9-20); CALCIUM 7.7 mg/dl (8.6-10.4); GLUCOSE,RANDOM 65 mg/dL (75-110); TOTAL PROTEIN 5.6 g/dL (6.3-8.3)
[2016-12-11 09:28] LABS: NEUTROPHIL 95 % (50-75); TOTAL CELLS COUNTED 100
[2016-12-11 11:22] LABS: BILIRUBIN,DIRECT 4.3 mg/dL (0.0-0.4)
--- NOTE | 2016-12-11 13:37 | CP.PCM.CON ---
History of Present Illness - History of Present Illness History of Present Illness: Cardiac clearance for ERCP/EUS: 81 y/o who presents for abdominal pain and weight loss and weakness generalized..Patient is a poor historian and med record reviewed for information. he denies any chest tightness, PND, orthopnea, syncope or palpitation. No fevers, chills or gross GI bleeding. PMHX: HTN, BPH PSHX: no surgery SocHx: History smoking * Abdominal ultrasound showing dilated common bile duct, Intrahepatic biliary ductal dilatation. Irregular appearance of the gallbladder wall with evidence of septation near the fundus. * Abdomen CT/Pelvis showing Biliary dilatation with common bile duct are measuring up to 14 mm. Differential considerations to include poorly radiopaque common bile duct stone, occult pancreatic or ampullary mass Review of Systems - Review of Systems All systems: reviewed and no additional remarkable complaints except - Constitutional Constitutional: Malaise, Weight Loss - Gastrointestinal Gastrointestinal: Abdominal Pain Past Patient History - Infectious Disease Hx of Infectious Diseases: None - Past Medical History & Family History Past Medical History?: Yes - Past Social History Smoking Status: Heavy Smoker > 10 Cigarettes Daily - CARDIAC Hx Hypertension: Yes - PULMONARY Hx Respiratory Disorders: No - NEUROLOGICAL Hx Parkinson's Disease: Yes - HEENT Hx HEENT Problems: No - RENAL Hx Chronic Kidney Disease: No - ENDOCRINE/METABOLIC Hx Endocrine Disorders: No - HEMATOLOGICAL/ONCOLOGICAL Hx Blood Disorders: No - INTEGUMENTARY Hx Dermatological Problems: No - MUSCULOSKELETAL/RHEUMATOLOGICAL Hx Unsteady Gait: Yes - GASTROINTESTINAL Hx Gastrointestinal Disorders: No - GENITOURINARY/GYNECOLOGICAL Hx Genitourinary Disorders: No - PSYCHIATRIC Hx Substance Use: No - SURGICAL HISTORY Hx Surgeries: No - ANESTHESIA Hx Anesthesia: No Meds Allergies/Adverse Reactions: Allergies Allergy/AdvReac Type Severity Reaction Status Date / Time No Known Allergies Allergy Verified 12/10/16 04:07 - Medications Medications: Current Medications Acetaminophen (Tylenol 650 Mg Supp) 650 mg [place] Q4 PRN PRN Reason: Fever >100.4 F Famotidine (Pepcid) 20 mg IVP DAILY [facility] Last Admin: 12/11/16 10:45 Dose: 20 mg Sodium Chloride (Sodium Chloride 0.9%) 1,000 mls @ 100 mls/hr IV .Q10H [facility] Last Admin: 12/11/16 03:08 Dose: 100 mls/hr Piperacillin Sod/Tazobactam (Sod 3.375 gm/ Sodium Chloride) 100 mls @ 200 mls/ hr IVPB Q6H [facility] Last Admin: 12/11/16 12:04 Dose: 200 mls/hr Potassium Chloride (Potassium Chloride 20 Meq/100 Ml) 20 meq in 100 mls @ 50 mls/hr IVPB Q2 [facility] Stop: 12/11/16 17:59 Last Admin: 12/11/16 12:05 Dose: 50 mls/hr Ibuprofen (Motrin Tab) 400 mg PO Q6 PRN PRN Reason: Fever >100.4 F Pneumococcal Polyvalent Vaccine (Pneumovax 23 Vaccine) 0.5 ml IM .ONCE ONE Stop: 12/12/16 10:01 Physical Exam - Constitutional Appears: Other (weak, cachectic, no acute distress) - Head Exam Head Exam: ATRAUMATIC, NORMAL INSPECTION, NORMOCEPHALIC - Eye Exam Eye Exam: Normal appearance - ENT Exam ENT Exam: Mucous Membranes Moist - Neck Exam Neck exam: Positive for: Normal Inspection - Respiratory Exam Respiratory Exam: Clear to Auscultation Bilateral, NORMAL BREATHING PATTERN. absent: Rhonchi, Wheezes - Cardiovascular Exam Cardiovascular Exam: REGULAR RHYTHM, +S1, +S2. absent: Systolic Murmur - GI/Abdominal Exam GI & Abdominal Exam: Normal Bowel Sounds, Soft, Tenderness - Extremities Exam Extremities exam: Positive for: normal inspection. Negative for: calf tenderness, pedal edema - Neurological Exam Neurological exam: Altered - Skin Skin Exam: Normal Color, Warm Results - Vital Signs Recent Vital Signs: Last Vital Signs Temp 98 F 12/11/16 08:00 Pulse 68 12/11/16 08:00 Resp 20 12/11/16 08:00 BP 140/86 12/11/16 08:00 Pulse Ox 96 12/11/16 08:00 - Labs Result Diagrams: 12/11/16 07:59 12/11/16 07:59 Labs: Laboratory Results - last 24 hr 12/11/16 12/11/16 12/11/16 07:59 07:59 07:59 WBC 15.8 H RBC 4.24 L Hgb 12.3 Hct 37.0 MCV 87.2 MCH 28.9 MCHC 33.2 RDW 15.3 H Plt Count 134 MPV 8.8 Neut % (Auto) 94.3 H Lymph % (Auto) 1.7 L [place] % (Auto) 3.8 Eos % (Auto) 0.0 Baso % (Auto) 0.2 Neut # 14.9 H Lymph # 0.3 L [place] # 0.6 Eos # 0.0 Baso # 0.0 Neutrophils % (Manual) 95 H Lymphocytes % (Manual) 1 L Monocytes % (Manual) 4 Platelet Estimate Normal RBC Morphology Normal PT 16.0 H INR 1.4 Sodium 140 Potassium 2.8 L Chloride 96 L Carbon Dioxide 30 Anion Gap 17 BUN 9 Creatinine 0.6 L Est GFR ( Amer) > 60 Est GFR (Non-Af Amer) > 60 Random Glucose 65 L Calcium 7.7 L Total Bilirubin 5.0 H Direct Bilirubin 4.3 H AST 55 ALT 70 Alkaline Phosphatase 249 H D Total Protein 5.6 L Albumin 2.6 L Globulin 2.9 Albumin/Globulin Ratio 0.9 L - EKG Data EKG Interpreted by: Myself (NSR, isolated PAC, isolated PVCs, no acute ischemic changes) Assessment & Plan - Assessment and Plan (Free Text) Assessment: 81 y/o with billiary obstruction planning ERCP/EUS * EKG: NSR, isolated PAC and PVCs, no acute ischemic changes * NO evidence for any pathologic or significant carotid bruits * Clinically no evidence for CHF * BP is mild * H/H and Creat is normal * Hypokalemia noted: > Based on above. There are no active or unstable cardiac conditions that would warrant additional testing prior to invasive procedure > BP is mild and if continues to be elevated losartan 25-50 should be added. > His initial troponin was negative and reassuring. > He may proceed with ERCP/EUS with acceptable risk - DVT prophylaxis - Monitor BP and Heart rate
[2016-12-11] MEDS ORDERED: Potassium Chl 40 mEq in D5-1/2 1,000 ML IV SCH (18:15)
--- NOTE | 2016-12-11 18:28 | CP.PCM.PN ---
Subjective - Date & Time of Evaluation Date of Evaluation: 12/11/16 Time of Evaluation: 06:00 - Subjective Subjective: Patient seen--sedated?= poor response to call, mild to pain breathing regularly look disheveld long bear long hair , cahectic looking tried to call for more info- but no answer discussion with Dr Simmons- plan of ERCP-but asked for cardiac clearance - Objective - Vital Signs/Intake and Output Vital Signs (last 24 hours): Temp Pulse Resp BP Pulse Ox 98.1 F 71 20 147/80 96 12/11/16 16:40 12/11/16 16:40 12/11/16 16:40 12/11/16 16:40 12/11/16 16:40 Intake and Output: 12/11/16 12/11/16 06:59 18:59 Intake Total 100 100 Balance 100 100 - Medications Medications: Current Medications Acetaminophen (Tylenol 650 Mg Supp) 650 mg [place] Q4 PRN PRN Reason: Fever >100.4 F Famotidine (Pepcid) 20 mg IVP DAILY [facility] Last Admin: 12/11/16 10:45 Dose: 20 mg Sodium Chloride (Sodium Chloride 0.9%) 1,000 mls @ 100 mls/hr IV .Q10H [facility] Last Admin: 12/11/16 16:02 Dose: 100 mls/hr Piperacillin Sod/Tazobactam (Sod 3.375 gm/ Sodium Chloride) 100 mls @ 200 mls/ hr IVPB Q6H [facility] Last Admin: 12/11/16 14:02 Dose: 200 mls/hr Potassium Chloride/Dextrose/Sod Cl (Potassium Chl 40 Meq In D5-1/2ns) 1,000 mls @ 0 mls/hr IV .Q0M [facility] PRN Reason: Per Protocol Ibuprofen (Motrin Tab) 400 mg PO Q6 PRN PRN Reason: Fever >100.4 F Pneumococcal Polyvalent Vaccine (Pneumovax 23 Vaccine) 0.5 ml IM .ONCE ONE Stop: 12/12/16 10:01 Potassium Chloride (K-Dur 20 Meq Er Tab) 20 meq PO DAILY [facility] Stop: 12/13/16 23:59 - Labs Labs: 12/11/16 07:59 12/11/16 07:59 PT 16.0 SECONDS (9.7-12.2) H 12/11/16 07:59 INR 1.4 12/11/16 07:59 - Constitutional Appears: Unkempt (long hair long anderson( from baseline clinic days- short hair no anderson)), Older Than Stated Age, Cachectic - Eye Exam Eye Exam: absent: Nystagmus, Periorbital swelling - ENT Exam ENT Exam: Mucous Membranes Dry - Neck Exam Neck Exam: absent: Meningismus - Respiratory Exam Respiratory Exam: Clear to Ausculation Bilateral, NORMAL BREATHING PATTERN - Cardiovascular Exam Cardiovascular Exam: REGULAR RHYTHM - GI/Abdominal Exam GI & Abdominal Exam: Soft, Normal Bowel Sounds. absent: Tenderness - Neurological Exam Neurological Exam: Altered Assessment and Plan - Assessment and Plan (Free Text) Assessment: Patient brought to ER due to abdominal pain- found to have CBD dilatation- for ERCP- cleared by cardio as requested by , on antibiotic Dehydration- on IVF had received sedation- mental status? baseline months ago- normal - in ER nurse reports angel but agitated combative , will check CT head due to history of smoking - will check CXR mental evaluation when awake consult Psychiatry (no neurological deficits) Hypokalemia- with normalmagnesium- supplementation GI prophylaxis DVT prophylaxis after surgery (is scheduled for ERCP in AM
[2016-12-11] MEDS ORDERED: Sodium Chloride 0.9% 1,000 ML IV SCH (18:29)
[2016-12-11 19:48] LABS: CHLORIDE 97 mmol/L (98-107); POTASSIUM 3.4 mmol/L (3.6-5.2); SODIUM 140 mmol/L (132-148)
[2016-12-11 19:51] LABS: ALKALINE PHOSPHATASE 213 U/L (38-126); ALT/SGPT 60 U/L (21-72); AST/SGOT 44 U/L (17-59); BILIRUBIN,TOTAL 2.9 mg/dL (0.2-1.3); BLOOD UREA NITROGEN 10 mg/dL (9-20); CARBON DIOXIDE 31 mmol/L (22-30); GFR AFRICAN-AMERICAN > 60; GLUCOSE,RANDOM 53 mg/dL (75-110); TOTAL PROTEIN 5.2 g/dL (6.3-8.3)
[2016-12-11 19:52] LABS: CALCIUM 7.7 mg/dl (8.6-10.4)
[2016-12-11 19:57] LABS: ALB/GLOB RATIO 0.9 (1.0-2.1)
[2016-12-12] MEDS: Piperacillin/Tazobact 3.375 GM in Sodium Chloride 100 ML IVPB SCH ×3 (01:46→20:56)
[2016-12-12] MEDS: Folic Acid 1 MG, Thiamine 100 MG, Multivitamin (MVI) 10 ML in Dextrose 5% In Water 1,00... IV SCH (08:15)
[2016-12-12 08:40] LABS: HEMATOCRIT 36.9 % (35.0-51.0); MEAN CELL VOLUME 87.2 fL (80.0-94.0); MEAN CORPUSCULAR HEMOGLOBIN 28.6 pg (27.0-31.0); MEAN CORPUSCULAR HGB CONC 32.8 g/dL (33.0-37.0); MEAN PLATELET VOLUME 8.7 fL (7.2-11.7); RED CELL DISTRIBUTION WIDTH 15.5 % (11.5-14.5); WHITE BLOOD COUNT 11.3 K/uL (4.8-10.8)
[2016-12-12 08:43] LABS: CHLORIDE 97 mmol/L (98-107)
[2016-12-12 08:44] LABS: POTASSIUM 3.2 mmol/L (3.6-5.2); SODIUM 136 mmol/L (132-148)
[2016-12-12 08:46] LABS: ALB/GLOB RATIO 0.9 (1.0-2.1); ALKALINE PHOSPHATASE 235 U/L (38-126); AST/SGOT 38 U/L (17-59); BILIRUBIN,TOTAL 2.6 mg/dL (0.2-1.3); BLOOD UREA NITROGEN 9 mg/dL (9-20); CARBON DIOXIDE 30 mmol/L (22-30); GFR AFRICAN-AMERICAN > 60; GLUCOSE,RANDOM 101 mg/dL (75-110); TOTAL PROTEIN 5.6 g/dL (6.3-8.3)
[2016-12-12 08:47] LABS: ALT/SGPT 58 U/L (21-72); CALCIUM 7.8 mg/dl (8.6-10.4)
[2016-12-12] MEDS ORDERED: Pneumococcal 23-Valent Vaccine IM ONE (10:00)
[2016-12-12] MEDS ORDERED: Potassium Chloride 20 mEq ER Tab PO SCH (10:00)
[2016-12-12] MEDS ORDERED: Sodium Chloride 0.9% 20 ML IV ONE (15:02)
--- NOTE | 2016-12-12 16:25 | CP.PCM.PN ---
Subjective - Date & Time of Evaluation Date of Evaluation: 12/12/16 Time of Evaluation: 07:00 - Subjective Subjective: SURGERY PROGRESS NOTE FOR DR. LÓPEZ Patient seen and examines at bedside. He is confused but offers no complaints. He is NPO for ERCP today. Objective - Vital Signs/Intake and Output Vital Signs (last 24 hours): Temp Pulse Resp BP Pulse Ox 97.7 F 72 22 142/82 94 L 12/11/16 23:25 12/12/16 00:40 12/11/16 23:25 12/11/16 23:25 12/11/16 23:25 Intake and Output: 12/12/16 12/12/16 06:59 18:59 Intake Total 980 Output Total 1 Balance 979 - Medications Medications: Current Medications Acetaminophen (Tylenol 650 Mg Supp) 650 mg [place] Q4 PRN PRN Reason: Fever >100.4 F Famotidine (Pepcid) 20 mg IVP DAILY [facility] Last Admin: 12/12/16 10:25 Dose: 20 mg Piperacillin Sod/Tazobactam (Sod 3.375 gm/ Sodium Chloride) 100 mls @ 200 mls/ hr IVPB Q6H [facility] Last Admin: 12/12/16 09:59 Dose: 200 mls/hr Potassium Chloride/Dextrose/Sod Cl (Potassium Chl 40 Meq In D5-1/2ns) 1,000 mls @ 80 mls/hr IV Q24H [facility] Last Admin: 12/11/16 19:56 Dose: 80 mls/hr Folic Acid 1 mg/ Thiamine HCl 100 mg/ Multivitamins/Vitamin C 10 ml/ Dextrose 1 ,011.2 mls @ 80 mls/hr IV Q24H [facility] Last Admin: 12/12/16 08:15 Dose: 80 mls/hr Potassium Chloride (Potassium Chloride 20 Meq/100 Ml) 20 meq in 100 mls @ 50 mls/hr IVPB Q2 [facility] Last Admin: 12/12/16 13:30 Dose: Not Given Ibuprofen (Motrin Tab) 400 mg PO Q6 PRN PRN Reason: Fever >100.4 F Pneumococcal Polyvalent Vaccine (Pneumovax 23 Vaccine) 0.5 ml IM .ONCE ONE Stop: 12/13/16 10:01 Potassium Chloride (K-Dur 20 Meq Er Tab) 20 meq PO DAILY [facility] Stop: 08/10/17 23:59 Last Admin: 12/12/16 10:26 Dose: Not Given - Labs Labs: 12/12/16 08:18 12/12/16 08:18 PT 16.0 SECONDS (9.7-12.2) H 12/11/16 07:59 INR 1.4 12/11/16 07:59 - Constitutional Appears: Non-toxic, No Acute Distress - Head Exam Head Exam: ATRAUMATIC, NORMAL INSPECTION - Respiratory Exam Respiratory Exam: NORMAL BREATHING PATTERN. absent: Respiratory Distress - Cardiovascular Exam Cardiovascular Exam: +S1, +S2 - GI/Abdominal Exam GI & Abdominal Exam: Soft. absent: Distended, Firm, Guarding, Rigid, Tenderness , Rebound - Neurological Exam Neurological Exam: Alert, Awake. absent: Oriented x3 - Psychiatric Exam Psychiatric exam: Normal Affect, Normal Mood Assessment and Plan - Assessment and Plan (Free Text) Assessment: 81yoM with AMS, sepsis, biliary dilation, hyperbilirubinemia, likely secondary to biliary obstruction, r/o cholangitis, r/o choledocholithiasis - Afebrile - Leukocytosis trending down - Bilirubin still elevated but trending down - GI planning for ERCP today - Will FU findings - Discussed plan with Dr. Jaye Saenz PGY-3
--- NOTE | 2016-12-12 17:19 | CP.PCM.PN ---
<Eliud Simmons - Last Filed: 12/12/16 17:21> Subjective - Date & Time of Evaluation Date of Evaluation: 12/12/16 Time of Evaluation: 17:00 - Subjective Subjective: PGY4 GI Follow-up Pt seen and examined in the ENDO suite Procedure was cancelled due to patient being belligerent, uncooperative, and combative He also lacked IV access and was unsafe to proceed with this procedure at this time Will reschedule for Saturday, Prior to the procedure please ensure adequate IV access, with two working IV's Pt currently has no complants but unaware of situation and surroundings No reported events overnight ROS: could not perform Objective - Vital Signs/Intake and Output Vital Signs (last 24 hours): Temp Pulse Resp BP Pulse Ox 97.0 F L 70 100 H 158/68 H 94 L 12/12/16 08:00 12/12/16 12:00 12/12/16 08:00 12/12/16 08:00 12/11/16 23:25 Intake and Output: 12/12/16 12/12/16 06:59 18:59 Intake Total 980 Output Total 1 Balance 979 - Medications Medications: Current Medications Acetaminophen (Tylenol 650 Mg Supp) 650 mg [place] Q4 PRN PRN Reason: Fever >100.4 F Famotidine (Pepcid) 20 mg IVP DAILY [facility] Last Admin: 12/12/16 10:25 Dose: 20 mg Piperacillin Sod/Tazobactam (Sod 3.375 gm/ Sodium Chloride) 100 mls @ 200 mls/ hr IVPB Q6H [facility] Last Admin: 12/12/16 09:59 Dose: 200 mls/hr Potassium Chloride/Dextrose/Sod Cl (Potassium Chl 40 Meq In D5-1/2ns) 1,000 mls @ 80 mls/hr IV Q24H [facility] Last Admin: 12/11/16 19:56 Dose: 80 mls/hr Folic Acid 1 mg/ Thiamine HCl 100 mg/ Multivitamins/Vitamin C 10 ml/ Dextrose 1 ,011.2 mls @ 80 mls/hr IV Q24H [facility] Last Admin: 12/12/16 08:15 Dose: 80 mls/hr Potassium Chloride (Potassium Chloride 20 Meq/100 Ml) 20 meq in 100 mls @ 50 mls/hr IVPB Q2 [facility] Last Admin: 12/12/16 13:30 Dose: Not Given Ibuprofen (Motrin Tab) 400 mg PO Q6 PRN PRN Reason: Fever >100.4 F Pneumococcal Polyvalent Vaccine (Pneumovax 23 Vaccine) 0.5 ml IM .ONCE ONE Stop: 12/13/16 10:01 Potassium Chloride (K-Dur 20 Meq Er Tab) 20 meq PO DAILY [facility] Stop: 12/13/16 23:59 Last Admin: 12/12/16 10:26 Dose: Not Given - Labs Labs: 12/12/16 08:18 12/12/16 08:18 PT 16.0 SECONDS (9.7-12.2) H 12/11/16 07:59 INR 1.4 12/11/16 07:59 - Constitutional Appears: Combative, Agitated, Chronically Ill - Eye Exam Eye Exam: Scleral icterus - ENT Exam ENT Exam: Mucous Membranes Moist, Normal Exam - Respiratory Exam Respiratory Exam: Clear to Ausculation Bilateral, NORMAL BREATHING PATTERN. absent: Rales, Rhonchi, Wheezes - Cardiovascular Exam Cardiovascular Exam: REGULAR RHYTHM, +S1, +S2 - GI/Abdominal Exam GI & Abdominal Exam: Soft, Normal Bowel Sounds. absent: Guarding, Rigid, Tenderness, Hyperactive Bowel Sounds, Hypoactive Bowel Sounds, Organomegaly - Extremities Exam Extremities Exam: absent: Joint Swelling, Pedal Edema - Neurological Exam Neurological Exam: Alert, Awake - Psychiatric Exam Psychiatric exam: Agitated, Anxious - Skin Skin Exam: Dry, Intact, Warm Additional comments: juandiced Assessment and Plan - Assessment and Plan (Free Text) Assessment: Procedure was cancelled due to patient being belligerent, uncooperative, and combative He also lacked IV access and was unsafe to proceed with this procedure at this time Will reschedule for Saturday, Prior to the procedure please ensure adequate IV access, with two working IV's Schuyler Don is a 81M w/ hx of dementia, HTN, and parkinsons who presentd to the ED with complaints of Abd pain. PT was found to have a dilated CBD and intrahepatic ducts with no obvious stone. 1. Abd pain likely 2/2 biliary obstruction; r/o cholangitis 2. Dilated CBD and intrahepatic ducts likely 2/2 biliary obstruction, etiology unknown at this time DDX: stricture, mass, stone 3. Transaminemia likely 2/2 cholestatis from CBD obstruction 4. AMS 5. Hypokalemia Plan: -continue IV fluids -closely monitor, if pt worsens or becomes hemodynamically unstable consider ICU eval -continue zosyn IV -will tentatively plan for ERCP and EUS eval for saturday -NPO after midnight the night prior -hold any anticoag after midnight -continue to monitor LFTs -Please replenish electrolytes, (k+) D/W Dr. Shine <Gab Shine - Last Filed: 12/12/16 18:40> Objective - Vital Signs/Intake and Output Vital Signs (last 24 hours): Temp Pulse Resp BP Pulse Ox 97.0 F L 70 100 H 158/68 H 94 L 12/12/16 08:00 12/12/16 12:00 12/12/16 08:00 12/12/16 08:00 12/11/16 23:25 Intake and Output: 12/12/16 12/12/16 06:59 18:59 Intake Total 980 Output Total 1 Balance 979 - Medications Medications: Current Medications Acetaminophen (Tylenol 650 Mg Supp) 650 mg [place] Q4 PRN PRN Reason: Fever >100.4 F Famotidine (Pepcid) 20 mg IVP DAILY [facility] Last Admin: 12/12/16 10:25 Dose: 20 mg Piperacillin Sod/Tazobactam (Sod 3.375 gm/ Sodium Chloride) 100 mls @ 200 mls/ hr IVPB Q6H [facility] Last Admin: 12/12/16 09:59 Dose: 200 mls/hr Potassium Chloride/Dextrose/Sod Cl (Potassium Chl 40 Meq In D5-1/2ns) 1,000 mls @ 80 mls/hr IV Q24H [facility] Last Admin: 12/11/16 19:56 Dose: 80 mls/hr Folic Acid 1 mg/ Thiamine HCl 100 mg/ Multivitamins/Vitamin C 10 ml/ Dextrose 1 ,011.2 mls @ 80 mls/hr IV Q24H [facility] Last Admin: 12/12/16 08:15 Dose: 80 mls/hr Potassium Chloride (Potassium Chloride 20 Meq/100 Ml) 20 meq in 100 mls @ 50 mls/hr IVPB Q2 [facility] Last Admin: 12/12/16 13:30 Dose: Not Given Ibuprofen (Motrin Tab) 400 mg PO Q6 PRN PRN Reason: Fever >100.4 F Pneumococcal Polyvalent Vaccine (Pneumovax 23 Vaccine) 0.5 ml IM .ONCE ONE Stop: 12/13/16 10:01 Potassium Chloride (K-Dur 20 Meq Er Tab) 20 meq PO DAILY [facility] Stop: 12/13/16 23:59 Last Admin: 12/12/16 10:26 Dose: Not Given - Labs Labs: 12/12/16 08:18 12/12/16 08:18 PT 16.0 SECONDS (9.7-12.2) H 12/11/16 07:59 INR 1.4 12/11/16 07:59 Attending/Attestation - Attestation I have personally seen and examined this patient.: Yes I have fully participated in the care of the patient.: Yes I have reviewed all pertinent clinical information, including history, physical exam and plan: Yes Notes (Text): 12/12/16 18:38 81 year old male with dementia admitted with jaundice, biliary dilation, concern for biliary obstruction. 1. Jaundice 2. Biliary obstruction Plan: -patient had planned EUS/ERCP today -he had unreliable / non-functional IV access -he was acutely agitated, attempting to get out of the bed, he was combative with the staff who was trying to obtain IV access -therefore, the procedure was aborted as it does not appear to be an emergency as the patient is otherwise stable, with normal vitals, decreasing wbc/bili -may reattempt saturday if patient more amenable / reliable IV access obtained
[2016-12-12 20:26] LABS: THYROID STIMULATING HORMONE 1.68 mIU/L (0.46-4.68)
[2016-12-12 21:01] LABS: FOLATE 4.2 ng/mL
--- NOTE | 2016-12-12 23:01 | CP.PCM.PN ---
Subjective - Date & Time of Evaluation Date of Evaluation: 12/12/16 Time of Evaluation: 05:30 - Subjective Subjective: patient seen in endo suite- ERCP planned- patient noted to be combative, disoriented , conversant, non cooperative, pushing away things that gets closer , not in distress, Discussed with Psychiatry discussed with Objective - Vital Signs/Intake and Output Vital Signs (last 24 hours): Temp Pulse Resp BP Pulse Ox 97.0 F L 70 100 H 158/68 H 94 L 12/12/16 08:00 12/12/16 12:00 12/12/16 08:00 12/12/16 08:00 12/11/16 23:25 Intake and Output: 12/12/16 12/13/16 18:59 06:59 Intake Total 220 Balance 220 - Medications Medications: Current Medications Acetaminophen (Tylenol 650 Mg Supp) 650 mg [place] Q4 PRN PRN Reason: Fever >100.4 F Famotidine (Pepcid) 20 mg IVP DAILY [facility] Last Admin: 12/12/16 10:25 Dose: 20 mg Piperacillin Sod/Tazobactam (Sod 3.375 gm/ Sodium Chloride) 100 mls @ 200 mls/ hr IVPB Q6H [facility] Last Admin: 12/12/16 20:56 Dose: 200 mls/hr Potassium Chloride/Dextrose/Sod Cl (Potassium Chl 40 Meq In D5-1/2ns) 1,000 mls @ 80 mls/hr IV Q24H [facility] Last Admin: 12/11/16 19:56 Dose: 80 mls/hr Folic Acid 1 mg/ Thiamine HCl 100 mg/ Multivitamins/Vitamin C 10 ml/ Dextrose 1 ,011.2 mls @ 80 mls/hr IV Q24H [facility] Last Admin: 12/12/16 08:15 Dose: 80 mls/hr Potassium Chloride (Potassium Chloride 20 Meq/100 Ml) 20 meq in 100 mls @ 50 mls/hr IVPB Q2 [facility] Last Admin: 12/12/16 21:10 Dose: Not Given Ibuprofen (Motrin Tab) 400 mg PO Q6 PRN PRN Reason: Fever >100.4 F Lorazepam (Ativan) 1 mg IVP Q6H PRN PRN Reason: Anxiety Last Admin: 12/12/16 19:42 Dose: 1 mg Pneumococcal Polyvalent Vaccine (Pneumovax 23 Vaccine) 0.5 ml IM .ONCE ONE Stop: 12/13/16 10:01 Potassium Chloride (K-Dur 20 Meq Er Tab) 20 meq PO DAILY [facility] Stop: 12/13/16 23:59 Last Admin: 12/12/16 10:26 Dose: Not Given - Labs Labs: 12/12/16 08:18 12/12/16 08:18 PT 16.0 SECONDS (9.7-12.2) H 12/11/16 07:59 INR 1.4 12/11/16 07:59 - Constitutional Appears: Agitated, Confused, Other (looks cachectic, disoriented) - Head Exam Head Exam: ATRAUMATIC, NORMOCEPHALIC - Eye Exam Eye Exam: absent: Nystagmus - ENT Exam ENT Exam: Mucous Membranes Dry - Neck Exam Neck Exam: absent: Meningismus - Respiratory Exam Respiratory Exam: NORMAL BREATHING PATTERN (other not assesed, patien is uncooperative, pushes away anything that gets closer to him) - Neurological Exam Neurological Exam: Alert, Awake (but disoriented) - Psychiatric Exam Psychiatric exam: Agitated Assessment and Plan - Assessment and Plan (Free Text) Plan: Patient with Sepsis- _ Cholangitis- on antibioticwith CBD dilatation- ERCP- cancelled due to uncooperaticve combative behavior Dementia- with above behavior- Psychiatry consulted History of hypertension- on monitoring - off meds Hypokalemia on supplementation Dehydration- on IVF GI and DVT prophylaxis
[2016-12-13] MEDS: Piperacillin/Tazobact 3.375 GM in Sodium Chloride 100 ML IVPB SCH ×4 (02:27→20:54)
--- NOTE | 2016-12-13 07:15 | CP.PCM.PN ---
<Eliud Simmons - Last Filed: 12/13/16 10:35> Subjective - Date & Time of Evaluation Date of Evaluation: 12/13/16 Time of Evaluation: 06:30 - Subjective Subjective: Pgy 4 GI follow-up Pt seen and examined bedside obtunded Nursing Denies any BRBPR or melena, or hematachezia No reported overnight events as per nursing staff ROS: could not be conducted Objective - Vital Signs/Intake and Output Vital Signs (last 24 hours): Temp Pulse Resp BP Pulse Ox 98.0 F 67 18 151/69 H 96 12/12/16 23:45 12/12/16 23:45 12/12/16 23:45 12/12/16 23:45 12/12/16 23:45 Intake and Output: 12/13/16 12/13/16 06:59 18:59 Intake Total 220 Balance 220 - Medications Medications: Current Medications Acetaminophen (Tylenol 650 Mg Supp) 650 mg [place] Q4 PRN PRN Reason: Fever >100.4 F Famotidine (Pepcid) 20 mg IVP DAILY [facility] Last Admin: 12/12/16 10:25 Dose: 20 mg Piperacillin Sod/Tazobactam (Sod 3.375 gm/ Sodium Chloride) 100 mls @ 200 mls/ hr IVPB Q6H [facility] Last Admin: 12/13/16 02:27 Dose: 200 mls/hr Potassium Chloride/Dextrose/Sod Cl (Potassium Chl 40 Meq In D5-1/2ns) 1,000 mls @ 80 mls/hr IV Q24H [facility] Last Admin: 12/11/16 19:56 Dose: 80 mls/hr Folic Acid 1 mg/ Thiamine HCl 100 mg/ Multivitamins/Vitamin C 10 ml/ Dextrose 1 ,011.2 mls @ 80 mls/hr IV Q24H [facility] Last Admin: 12/12/16 08:15 Dose: 80 mls/hr Potassium Chloride (Potassium Chloride 20 Meq/100 Ml) 20 meq in 100 mls @ 50 mls/hr IVPB Q2 [facility] Last Admin: 12/13/16 06:40 Dose: Not Given Ibuprofen (Motrin Tab) 400 mg PO Q6 PRN PRN Reason: Fever >100.4 F Lorazepam (Ativan) 1 mg IVP Q6H PRN PRN Reason: Anxiety Last Admin: 12/12/16 19:42 Dose: 1 mg Pneumococcal Polyvalent Vaccine (Pneumovax 23 Vaccine) 0.5 ml IM .ONCE ONE Stop: 12/13/16 10:01 Potassium Chloride (K-Dur 20 Meq Er Tab) 20 meq PO DAILY [facility] Stop: 12/13/16 23:59 Last Admin: 12/12/16 10:26 Dose: Not Given - Labs Labs: 12/12/16 08:18 12/12/16 08:18 PT 16.0 SECONDS (9.7-12.2) H 12/11/16 07:59 INR 1.4 12/11/16 07:59 - Constitutional Appears: Well, No Acute Distress - Head Exam Head Exam: ATRAUMATIC, NORMOCEPHALIC - Eye Exam Eye Exam: Normal appearance - ENT Exam ENT Exam: Mucous Membranes Moist, Normal Exam - Respiratory Exam Respiratory Exam: Clear to Ausculation Bilateral, NORMAL BREATHING PATTERN. absent: Rales, Rhonchi, Wheezes, Respiratory Distress - Cardiovascular Exam Cardiovascular Exam: REGULAR RHYTHM, +S1, +S2 - GI/Abdominal Exam GI & Abdominal Exam: Soft, Tenderness, Normal Bowel Sounds, Organomegaly Additional comments: grimacing with palpation of RUQ - Neurological Exam Neurological Exam: Alert, Awake, Oriented x3 - Skin Skin Exam: Dry, Intact, Warm Additional comments: lazara <Fox Lynne - Last Filed: 12/13/16 18:51> Objective - Vital Signs/Intake and Output Vital Signs (last 24 hours): Temp Pulse Resp BP Pulse Ox 98.1 F 74 20 130/63 97 12/13/16 16:00 12/13/16 16:48 12/13/16 16:00 12/13/16 16:00 12/13/16 16:00 Intake and Output: 12/13/16 12/13/16 06:59 18:59 Intake Total 220 1770 Balance 220 1770 - Medications Medications: Current Medications Acetaminophen (Tylenol 650 Mg Supp) 650 mg [place] Q4 PRN PRN Reason: Fever >100.4 F Carbidopa/Levodopa (Sinemet 10) 1 tab PO TID [facility] Famotidine (Pepcid) 20 mg PO DAILY [facility] Piperacillin Sod/Tazobactam (Sod 3.375 gm/ Sodium Chloride) 100 mls @ 200 mls/ hr IVPB Q6H [facility] Last Admin: 12/13/16 14:51 Dose: Not Given Folic Acid 1 mg/ Thiamine HCl 100 mg/ Multivitamins/Vitamin C 10 ml/ Dextrose 1 ,011.2 mls @ 80 mls/hr IV Q24H [facility] Last Admin: 12/13/16 10:20 Dose: 80 mls/hr Ibuprofen (Motrin Tab) 400 mg PO Q6 PRN PRN Reason: Fever >100.4 F Lorazepam (Ativan) 1 mg IVP Q6H PRN PRN Reason: Anxiety Last Admin: 12/12/16 19:42 Dose: 1 mg - Labs Labs: 12/12/16 08:18 12/13/16 07:12 PT 16.0 SECONDS (9.7-12.2) H 12/11/16 07:59 INR 1.4 12/11/16 07:59 Attending/Attestation - Attestation I have personally seen and examined this patient.: Yes I have fully participated in the care of the patient.: Yes I have reviewed all pertinent clinical information, including history, physical exam and plan: Yes Notes (Text): 12/13/16 18:45 I have seen and examined patient with GI fellow. No acute events overnight. He is still not able to participate in meaningful conversation. As per nursing staff, no acute events overnight. There is no reported abdominal pain, nausea, vomiting, fever/chills. Dementia HTN Jaundice, biliary obstruction of unclear etiology - Unable to obtain MR imaging due to patient non-compliance - LFTs trending down, continue to monitor - Will re-attempt EUS +/- ERCP tomorrow for further evaluation, NPO - Further plan as per primary GI team
[2016-12-13 08:08] LABS: BLOOD UREA NITROGEN 7 mg/dL (9-20); CALCIUM 7.5 mg/dl (8.6-10.4); CARBON DIOXIDE 30 mmol/L (22-30); CHLORIDE 96 mmol/L (98-107); GFR AFRICAN-AMERICAN > 60; GLUCOSE,RANDOM 90 mg/dL (75-110); MAGNESIUM 1.4 mg/dL (1.6-2.3); POTASSIUM 4.1 mmol/L (3.6-5.2); SODIUM 131 mmol/L (132-148)
--- NOTE | 2016-12-13 08:26 | CON ---
DATE: 12/12/2016 CHIEF COMPLAINT AND REASON FOR CONSULTATION: The patient referred by Dr. Lakeisha Saeed for evaluation for dementia. The patient had periods of agitation and confusion. HISTORY OF PRESENT ILLNESS: The patient is an 81-year-old male who was brought in by EMS complaining abdominal pain, had CAT scan and sonogram showed dilated common bile duct and anterior hepatic duct without any mass, lesion, or gallstone. The patient also complaining of low-grade fever and jaundice. The patient is referred for co-management as the patient has periods of confusion and also has been agitated. The patient was supposed to go for ERCP. The patient has a history of Parkinson disease, but in the chart not taking any medication. He also is having increasing periods of confusion. He looks very cachectic and also has very unsteady gait. The patient claims he lives with his who is 75 years old who also has medical problems of her own and both of them are trying to help each other as the patient has no children. The patient was given Ativan p.r.n., but today was not to be restless and a fall risk as he was trying to get out of bed, insisting that he wants to go to the bathroom and his gait is very unsteady. The patient still wants to assert independence. The patient knows he is in the hospital and also looking for his . PAST PSYCH HISTORY: No history of depression and dementia, but history on the chart of possible delirium on admission. MEDICAL HISTORY: He has history of Parkinson's disease, history of common bile duct dilatation, and history of jaundice, DRUG HISTORY: The patient is a smoker. No alcohol use. ALLERGIES: THE PATIENT HAS NO KNOWN ALLERGIES. PSYCHOSOCIAL HISTORY: The patient is a retired car driver. He lives with his of more than 50 years. They have no children. LABORATORY DATA: Review of his labs, patient's WBC is 11.3, H and H is 12.1/36.9. Sodium is 136, creatinine 0.6, lipase is 13. Urine is +1 for protein and +2 for urobilinogen. PHYSICAL EXAMINATION VITAL SIGNS: Temperature is 97, pulse rate is 70, blood pressure is 158/68, respirations 100, and oxygen saturation is 94% on room air. The patient was seen by GI and seen also by Dr. Cee. The patient had abdominal CAT scan done that showed biliary dilatation of the common bile duct measuring up to 14 mm, small ascites and hepatic renal cyst. REVIEW OF SYSTEMS: GENERAL: The patient is alert, verbal, appears with confusion, very cachectic looking, seen in his room, the patient wants to get out of bed. SKIN: No pruritus. HEENT: No headache, or dizziness. NECK: Supple. RESPIRATORY: No dyspnea stated. CARDIOVASCULAR: No chest pain. GASTROINTESTINAL: Appetite variable. EXTREMITIES: Very coarse tremors in both hands and very unsteady gait. MUSCULOSKELETAL: Feels weak. NEUROLOGIC: Alert with periods of confusion. He is oriented x3. GENITOURINARY: No dysuria. MENTAL STATUS EXAMINATION: A cachectic-looking male, looks stated age who is about 5 feet 10 inches and weighs 95 pounds. Mood is dysphoric. Affect is reactive. Speech is spontaneous, anxious at times. He is agitated. Thought process is confused off and on. Thought content, the patient wants to go to the bathroom by himself, but has very unsteady gait. No suicidal ideation or psychosis. Attention and memory seems to be limited. Insight and judgment limited. Impulse control is guarded. IMPRESSION: Consider metabolic encephalopathy, delirium secondary to his Parkinson's as well as other medical condition as well as consider dementia with mood changes. PLAN AND RECOMMENDATIONS: The patient is seen, meds reviewed. We will plan to do dementia workup, CAT scan of the head without contrast. TSH, B12, and folate. We have Ativan 1 mg IV q. 6 hours p.r.n. for agitation. The patient needs close monitoring. He may benefit to be placed in a 4 bedded room for closer supervision.. The patient tries to stand on his own and has a very unsteady gait and the risk of fall. Otherwise, the patient may need to be on one-to-one watch. The patient has progressive Parkinson and may benefit from having been seen by a neurologist to evaluate his Parkinson meds. Currently, the patient is taking the following meds: Ativan 1 mg IV q. 6 hours p.r.n., potassium, Motrin, folic acid, famotidine, Tylenol, and piperacillin. The patient may need his Parkinson meds to be titrated and the benefit to be seen by the neurologist. Also, the patient if discharged to home will need 24-hour care, as the patient is very debilitated and also has complex medical problems and he has a very elderly , both of them will need help, especially the patient is elderly with dementia. He may benefit from going to subacute rehab or a retirement. However, the patient will go to the retirement, I did suggest that the should also stay at the retirement together. They have been for 50 years and they have no children. It is of benefit for both of them. If the patient will go to the retirement, the patient's would come with him. If the patient will be discharged to home, the patient will need 24-hour care. The patient states that he will try to hire a homemaker if he has the means to provide himself 24-hour care at home, which may benefit him as well as his . Thank you for the consult. Mayo Renee MD MTDSalvatore
[2016-12-13] MEDS ORDERED: Pneumococcal 23-Valent Vaccine IM ONE (10:00)
[2016-12-13] MEDS: Folic Acid 1 MG, Thiamine 100 MG, Multivitamin (MVI) 10 ML in Dextrose 5% In Water 1,00... IV SCH (10:20)
--- NOTE | 2016-12-13 10:40 | CT ---
PROCEDURE: CT HEAD WITHOUT CONTRAST. HISTORY: assess for progressive dementia COMPARISON: None available. TECHNIQUE: Axial computed tomography images were obtained through the head/brain without intravenous contrast. Radiation dose: Total exam DLP = 1038.36 mGy-cm. This CT exam was performed using one or more of the following dose reduction techniques: Automated exposure control, adjustment of the mA and/or kV according to patient size, and/or use of iterative reconstruction technique. FINDINGS: HEMORRHAGE: No intracranial hemorrhage. BRAIN: Moderate diffuse atrophy with prominence of the ventricles and sulci noted. No mass effect or edema. Intracranial atherosclerotic calcifications. Moderate scattered periventricular and subcortical white matter hypodensities, which are nonspecific, but often seen with chronic microvascular ischemic disease. Please note that MRI with diffusion imaging is more sensitive in the detection of acute ischemic event. VENTRICLES: No hydrocephalus. CALVARIUM: Unremarkable. PARANASAL SINUSES: Unremarkable as visualized. No significant inflammatory changes. MASTOID AIR CELLS: Unremarkable as visualized. No inflammatory changes. OTHER FINDINGS: Partial opacification of the bilateral external auditory canals, likely cerumen. IMPRESSION: Moderate generalized atrophy. Moderate nonspecific white matter changes as above. Preliminary impression was provided by virtual radiologic.
--- NOTE | 2016-12-13 13:34 | CP.PCM.PN ---
Subjective - Date & Time of Evaluation Date of Evaluation: 12/13/16 Time of Evaluation: 10:30 - Subjective Subjective: Consulted Psychiatry- recommended neuro- patient remained alert awake but disoriented with signs of dementia no acute pain answers inappropriately Objective - Vital Signs/Intake and Output Vital Signs (last 24 hours): Temp Pulse Resp BP Pulse Ox 97.4 F L 54 L 20 147/80 97 12/13/16 10:11 12/13/16 10:11 12/13/16 10:11 12/13/16 10:11 12/13/16 10:11 Intake and Output: 12/13/16 12/13/16 06:59 18:59 Intake Total 220 Balance 220 - Medications Medications: Current Medications Acetaminophen (Tylenol 650 Mg Supp) 650 mg [place] Q4 PRN PRN Reason: Fever >100.4 F Famotidine (Pepcid) 20 mg IVP DAILY [facility] Last Admin: 12/13/16 11:14 Dose: 20 mg Piperacillin Sod/Tazobactam (Sod 3.375 gm/ Sodium Chloride) 100 mls @ 200 mls/ hr IVPB Q6H [facility] Last Admin: 12/13/16 11:13 Dose: 200 mls/hr Folic Acid 1 mg/ Thiamine HCl 100 mg/ Multivitamins/Vitamin C 10 ml/ Dextrose 1 ,011.2 mls @ 80 mls/hr IV Q24H [facility] Last Admin: 12/13/16 10:20 Dose: 80 mls/hr Ibuprofen (Motrin Tab) 400 mg PO Q6 PRN PRN Reason: Fever >100.4 F Lorazepam (Ativan) 1 mg IVP Q6H PRN PRN Reason: Anxiety Last Admin: 12/12/16 19:42 Dose: 1 mg - Labs Labs: 12/12/16 08:18 12/13/16 07:12 PT 16.0 SECONDS (9.7-12.2) H 12/11/16 07:59 INR 1.4 12/11/16 07:59 - Constitutional Appears: No Acute Distress, Older Than Stated Age, Confused - Head Exam Head Exam: ATRAUMATIC, NORMOCEPHALIC - Eye Exam Eye Exam: absent: Nystagmus, Periorbital swelling - ENT Exam ENT Exam: Mucous Membranes Dry - Neck Exam Neck Exam: Full ROM - Respiratory Exam Respiratory Exam: Clear to Ausculation Bilateral, NORMAL BREATHING PATTERN - Cardiovascular Exam Cardiovascular Exam: REGULAR RHYTHM - GI/Abdominal Exam GI & Abdominal Exam: Soft (no facial sign of pain ). absent: Distended - Extremities Exam Extremities Exam: Full ROM. absent: Joint Swelling, Pedal Edema - Back Exam Back Exam: absent: rash noted - Neurological Exam Neurological Exam: Altered, Awake (awake but is demented disoriented ) - Psychiatric Exam Psychiatric exam: Agitated (agitated at times ) - Skin Skin Exam: Intact, Normal Color Assessment and Plan - Assessment and Plan (Free Text) Assessment: Patient with signs of Sepsis o= Cholangitis- with CBD dilatation- ERCP -been postponed due to patinet uncooperativeness Dementia- psychiatry consulted Potassium corrected Cachexia, CXRay no suspicious mass CT no active lesion for monitoring - will consult for future dicharge planning placement?
--- NOTE | 2016-12-13 14:52 | RAD ---
Chest x-ray single frontal view History: Altered mental status. Smoker. Comparison: 07/23/2016 Findings: Biapical pleural thickening with upper lobe granulomatous changes. Right paratracheal airspace opacity may represent prominent vasculature. Diffuse increased interstitial lung markings. Right hilar prominence. Tortuous aorta. Calcification at the aortic knob. Degenerative changes in the spine and shoulders. Impression: Biapical pleural thickening with upper lobe granulomatous changes. Right paratracheal airspace opacity may represent prominent vasculature. Diffuse increased interstitial lung markings. Right hilar prominence. If there is concern for underlying pulmonary nodules, consider further evaluation with chest CT.
--- NOTE | 2016-12-13 17:07 | CP.PCM.PN ---
Subjective - Date & Time of Evaluation Date of Evaluation: 12/13/16 Time of Evaluation: 08:00 - Subjective Subjective: SURGERY PROGRESS NOTE FOR DR. LÓPEZ Patient seen and examines at bedside. They attempted to do ERCP yesterday but patient was combative, disoriented, uncooperative. He also had unreliable IV access. The procedure was cancelled. Psychiatry was consulted. Today, patient said "nothings changed" and he denies pain. Patient refused physical exam. Objective - Vital Signs/Intake and Output Vital Signs (last 24 hours): Temp Pulse Resp BP Pulse Ox 98.1 F 74 20 130/63 97 12/13/16 16:00 12/13/16 16:48 12/13/16 16:00 12/13/16 16:00 12/13/16 16:00 Intake and Output: 12/13/16 12/13/16 06:59 18:59 Intake Total 220 1770 Balance 220 1770 - Medications Medications: Current Medications Acetaminophen (Tylenol 650 Mg Supp) 650 mg [place] Q4 PRN PRN Reason: Fever >100.4 F Famotidine (Pepcid) 20 mg PO DAILY [facility] Piperacillin Sod/Tazobactam (Sod 3.375 gm/ Sodium Chloride) 100 mls @ 200 mls/ hr IVPB Q6H [facility] Last Admin: 12/13/16 14:51 Dose: Not Given Folic Acid 1 mg/ Thiamine HCl 100 mg/ Multivitamins/Vitamin C 10 ml/ Dextrose 1 ,011.2 mls @ 80 mls/hr IV Q24H [facility] Last Admin: 12/13/16 10:20 Dose: 80 mls/hr Ibuprofen (Motrin Tab) 400 mg PO Q6 PRN PRN Reason: Fever >100.4 F Lorazepam (Ativan) 1 mg IVP Q6H PRN PRN Reason: Anxiety Last Admin: 12/12/16 19:42 Dose: 1 mg - Labs Labs: 12/12/16 08:18 12/13/16 07:12 PT 16.0 SECONDS (9.7-12.2) H 12/11/16 07:59 INR 1.4 12/11/16 07:59 - Constitutional Appears: Unkempt, Confused - Respiratory Exam Respiratory Exam: NORMAL BREATHING PATTERN. absent: Respiratory Distress - Cardiovascular Exam Cardiovascular Exam: +S1, +S2 - GI/Abdominal Exam Additional comments: patient would not let me palpate abdomen - Neurological Exam Neurological Exam: Alert, Awake. absent: Oriented x3 Assessment and Plan - Assessment and Plan (Free Text) Assessment: 81yoM with AMS, sepsis, biliary dilation, hyperbilirubinemia, likely secondary to biliary obstruction, r/o cholangitis, r/o choledocholithiasis - Afebrile - GI rescheduled ERCP for tomorrow - Will FU findings - Discussed plan with Dr. Jaye Saenz PGY-3
[2016-12-13 23:33] LABS: CHLORIDE 94 mmol/L (98-107); SODIUM 130 mmol/L (132-148)
[2016-12-13 23:34] LABS: POTASSIUM 3.7 mmol/L (3.6-5.2)
[2016-12-13 23:36] LABS: ALB/GLOB RATIO 0.9 (1.0-2.1); ALKALINE PHOSPHATASE 207 U/L (38-126); ALT/SGPT 49 U/L (21-72); AST/SGOT 30 U/L (17-59); BILIRUBIN,TOTAL 1.6 mg/dL (0.2-1.3); BLOOD UREA NITROGEN 5 mg/dL (9-20); CALCIUM 7.5 mg/dl (8.6-10.4); CARBON DIOXIDE 31 mmol/L (22-30); GFR AFRICAN-AMERICAN > 60; GLUCOSE,RANDOM 103 mg/dL (75-110); TOTAL PROTEIN 5.3 g/dL (6.3-8.3)
[2016-12-14] MEDS: Piperacillin/Tazobact 3.375 GM in Sodium Chloride 100 ML IVPB SCH ×5 (02:18→20:31)
[2016-12-14 07:30] LABS: CHLORIDE 95 mmol/L (98-107); POTASSIUM 3.7 mmol/L (3.6-5.2); SODIUM 132 mmol/L (132-148)
[2016-12-14 07:32] LABS: BILIRUBIN,TOTAL 1.8 mg/dL (0.2-1.3); GFR AFRICAN-AMERICAN > 60
[2016-12-14 07:33] LABS: ALB/GLOB RATIO 0.9 (1.0-2.1); ALKALINE PHOSPHATASE 216 U/L (38-126); ALT/SGPT 52 U/L (21-72); AST/SGOT 29 U/L (17-59); BLOOD UREA NITROGEN 4 mg/dL (9-20); CARBON DIOXIDE 30 mmol/L (22-30); GLUCOSE,RANDOM 89 mg/dL (75-110); TOTAL PROTEIN 5.6 g/dL (6.3-8.3)
[2016-12-14 07:34] LABS: CALCIUM 7.8 mg/dl (8.6-10.4)
--- NOTE | 2016-12-14 07:40 | PN ---
DATE: 12/13/2016 SUBJECTIVE: The patient was seen. The patient was moved to the 4-beded room for closer monitoring. The patient has periods of confusion and agitation. According to the staff, patient ate 30% of his breakfast. Patient tells he knows where he is, but behavior is manageable. PHYSICAL EXAMINATION: VITAL SIGNS: Temperature 98, pulse is 67, blood pressure 151/69, respirations 18, oxygen saturation is 96%. REVIEW OF SYSTEMS: GENERAL: The patient is alert, but still confused seen in 4-beded room, less agitated and cooperative with care. SKIN: No pruritus. HEENT: No headache or dizziness. NECK: Supple. RESPIRATORY: No dyspnea. CARDIOVASCULAR: No chest pain. GASTROINTESTINAL: no nausea or vomiting. Extremities- has bilateral hand tremors and unsteady gait. Musculoskeletal- has gen debility Genitourinary- no dysuria Neurologic- alert with periods of confusion. MSE- a cachectic looking male, seen in the 4 bedded room, alert with with periods of confusion. Ox 2. Speech is spontaneous. Affect is restricted. Mood is dysphoric. TP- still with periods of confusion. Patient wants to go home. TC - no si or hi, no overt psychosis. Attention and Memory limited. Insight and Judgment limited. Impulse control improving. Impression: Delirium, metabolic encephalopathy improving Hx of sepsis, Parkinson's disease. LABORATORY DATA: Review of his labs; B12 is 615, folate is low 4.2, TSH is 1.68. MEDICATIONS: Patient is on Ativan p.r.n. 1 mg IV q.6 h p.r.n. was given last night. He seems to be manageable at this time, but needs 24-hour care. The patient also has very coarse tremors secondary to Parkinson's. and best being treated and evaluated by neurologist. Mayo Renee MD MTDD
[2016-12-14] MEDS ORDERED: Potassium Chloride 10 mEq ER Tab PO SCH (08:00)
--- NOTE | 2016-12-14 08:10 | CON ---
NEUROLOGY CONSULTATION DATE: 12/13/2016 REASON FOR CONSULTATION: Possible Parkinson's disease. CHIEF COMPLAINT: The patient was admitted with history of abdominal discomfort. During the hospitalization, the patient was found to have history of Parkinson's disease and been on no medication. From a neurological point of view, I was called in to evaluate him for further management. HISTORY OF PRESENT ILLNESS: Mr. Schuyler Don is an 81-year-old right-handed male brought to [facility] with history of abdominal pain. The patient has been under investigation from gastroenterology point of view. The patient also found to have Parkinson's disease in the past, not been on any medication. From neurological point of view, I was called in to evaluate him for further management. This is from the history I got that as well as on reviewing this chart, I could not get the full history from his background. At present, he is bedridden and he is not able to walk out of the bed. The patient knows he is in the hospital. He denies any complaints at present. PAST MEDICAL HISTORY: Except Parkinson's disease, no other history is documented in the chart. PERSONAL HISTORY: No history available. ALLERGIES: NO KNOWN ALLERGIES. MEDICATIONS: Lorazepam, folic acid, ibuprofen, famotidine, piperacillin, and acetaminophen. REVIEW OF SYSTEMS: A 12-point system been reviewed. From neurological system shows tremor and history of Parkinson's disease. PHYSICAL EXAMINATION: VITAL SIGNS: Blood pressure 130/63, mean arterial pressure of 85, respiratory rate of 16, temperature 98.1, and pulse rate 72 and regular. NEUROLOGICAL: The patient is awake, but resting tremor both upper extremities are noted. Respond to name. Speech is one-word answer; however, he keeps repeating himself, the same statement. He follows one-step command, significant right and left confusion. He could able to move all 4 extremities as per the command. CRANIAL NERVE EXAMINATION: Visual field, respond to visual threat. Pupils reactive to light. Extraocular movement markedly decreased in lateral gaze with absent vertical gaze both upward as well as lower gaze. Gag intact. No excessive salivation. MOTOR EXAMINATION: He could able to lift both upper extremities and lower extremities against the gravity. No fasciculation at rest. DEEP TENDON REFLEXES: Absent both upper as well as lower extremities. Plantars are with dull response. The patient does not have a masked face. However, speech is appropriate does not look like hypophonic. No lingual tremor. No titubation. The patient does have resting tremor without any cogwheel rigidity. The patient has gegenhalten rigidity. Rapid alternating movement, the patient is not cooperative. Gait is deferred at this time because of his clinical presentation. LABORATORY DATA: Workup; CT of the head, gross atrophy, no acute pathology noted. Blood workup; WBC 11.3, hemoglobin 12.1, hematocrit 36.9, and platelet 137. PT 16.0 and INR 1.4. Sodium 131, potassium 4.1, chloride 96, bicarbonate 30, GFR more than 60, calcium 7.5, magnesium 1.4, alkaline phosphatase 235, protein 5.6, albumin 2.6, B12 615, folate 4.2, and TSH 1.68. CONCLUSION: 1. Upon reviewing his history and neurological examination, Mr. Schuyler Don has been presenting with possible degenerative process affecting his movement, coordination, and memory. These are all includes patient probably has Lewy body disease versus multisystem atrophy. In addition to that, the patient decreased vertical gaze that raise the possibility, it could be progressive supranuclear palsy (PSP). Other possible causes of brainstem stroke should be ruled out. The patient also significantly suffering from peripheral neuropathy. Considering abnormal blood workup suggestive of malnutrition that has to be corrected. The patient can be benefited on giving low dose of Sinemet to see how he respond with the treatment. 2. Physical therapy. 3. MRI of the brain to rule out any structural cause or ischemic process in the midbrain. The patient should be getting out of the bed and physical therapy should be entertained as early as possible. Wero Saxena MD
[2016-12-14] MEDS ORDERED: Iohexol 240 (50 ml) ONE (08:43)
[2016-12-14] MEDS ORDERED: Indomethacin 50 MG Suppository PR ONE (08:44)
--- NOTE | 2016-12-14 08:46 | CP.PCM.PN ---
Subjective - Date & Time of Evaluation Date of Evaluation: 12/14/16 Time of Evaluation: 07:00 - Subjective Subjective: SURGERY PROGRESS NOTE FOR DR. LÓPEZ Patient seen and examines at bedside. He was sleeping comfortably. He is NPO since he is rescheduled for ERCP today with GI. Objective - Vital Signs/Intake and Output Vital Signs (last 24 hours): Temp Pulse Resp BP Pulse Ox 97.5 F L 57 L 19 137/70 99 12/14/16 08:01 12/14/16 08:01 12/14/16 08:01 12/14/16 08:01 12/14/16 08:01 Intake and Output: 12/14/16 12/14/16 06:59 18:59 Intake Total 840 Balance 840 - Medications Medications: Current Medications Acetaminophen (Tylenol 650 Mg Supp) 650 mg [place] Q4 PRN PRN Reason: Fever >100.4 F Carbidopa/Levodopa (Sinemet 10/100) 1 tab PO TID [facility] Famotidine (Pepcid) 20 mg PO DAILY [facility] Piperacillin Sod/Tazobactam (Sod 3.375 gm/ Sodium Chloride) 100 mls @ 200 mls/ hr IVPB Q6H [facility] Last Admin: 12/14/16 08:43 Dose: 200 mls/hr Folic Acid 1 mg/ Thiamine HCl 100 mg/ Multivitamins/Vitamin C 10 ml/ Dextrose 1 ,011.2 mls @ 80 mls/hr IV Q24H [facility] Ibuprofen (Motrin Tab) 400 mg PO Q6 PRN PRN Reason: Fever >100.4 F Lorazepam (Ativan) 1 mg IVP Q6H PRN PRN Reason: Anxiety Last Admin: 12/12/16 19:42 Dose: 1 mg - Labs Labs: 12/12/16 08:18 12/14/16 07:10 PT 16.0 SECONDS (9.7-12.2) H 12/11/16 07:59 INR 1.4 12/11/16 07:59 - Constitutional Appears: Non-toxic, No Acute Distress - Head Exam Head Exam: ATRAUMATIC, NORMAL INSPECTION - Respiratory Exam Respiratory Exam: NORMAL BREATHING PATTERN. absent: Respiratory Distress - Cardiovascular Exam Cardiovascular Exam: +S1, +S2 - GI/Abdominal Exam GI & Abdominal Exam: Soft. absent: Distended, Tenderness - Neurological Exam Neurological Exam: Altered. absent: Oriented x3 - Skin Skin Exam: Dry, Warm Assessment and Plan - Assessment and Plan (Free Text) Assessment: 81yoM with AMS, sepsis, biliary dilation, hyperbilirubinemia, likely secondary to biliary obstruction, r/o cholangitis, r/o choledocholithiasis - Afebrile - Leukocytosis trending down - T bili still elevated at 1.8 but trending down as well - GI rescheduled ERCP for today at 2:15 - Will FU findings - Discussed plan with Dr. Jaye Saenz PGY-3
[2016-12-14] MEDS ORDERED: Water For Injection 40 ML IV ONE (08:51)
[2016-12-14 09:17] LABS: BASO % 0.3 % (0.0-2.0); EOS # 0.1 K/uL (0.0-0.7); EOS % 1.1 % (0.0-4.0); HEMATOCRIT 33.7 % (35.0-51.0); LYMPH # 0.8 K/uL (1.0-4.3); LYMPH % 15.3 % (20.0-40.0); MEAN CELL VOLUME 87.2 fL (80.0-94.0); MEAN CORPUSCULAR HEMOGLOBIN 28.8 pg (27.0-31.0); MEAN PLATELET VOLUME 8.7 fL (7.2-11.7); MONO # 0.5 K/uL (0.0-0.8); MONO % 8.9 % (0.0-10.0); RED CELL DISTRIBUTION WIDTH 15.4 % (11.5-14.5); WHITE BLOOD COUNT 5.4 K/uL (4.8-10.8)
[2016-12-14] MEDS: Folic Acid 1 MG, Thiamine 100 MG, Multivitamin (MVI) 10 ML in Dextrose 5% In Water 1,00... IV SCH ×2 (10:20→15:41)
--- NOTE | 2016-12-14 10:33 | CP.PCM.PN ---
Subjective - Date & Time of Evaluation Date of Evaluation: 12/14/16 Time of Evaluation: 10:31 - Subjective Subjective: CC: f/u choledocholithiasis Patient has been uncooperative due to mental status. Hopefully EUS/ERCP can be performed today. Clinically stable LFTs stable On antibiotics Going for MRCP now Objective - Vital Signs/Intake and Output Vital Signs (last 24 hours): Temp Pulse Resp BP Pulse Ox 97.5 F L 57 L 19 137/70 99 12/14/16 08:01 12/14/16 08:01 12/14/16 08:01 12/14/16 08:01 12/14/16 08:01 Intake and Output: 12/14/16 12/14/16 06:59 18:59 Intake Total 840 Balance 840 - Medications Medications: Current Medications Acetaminophen (Tylenol 650 Mg Supp) 650 mg [place] Q4 PRN PRN Reason: Fever >100.4 F Carbidopa/Levodopa (Sinemet 10/100) 1 tab PO TID [facility] Famotidine (Pepcid) 20 mg PO DAILY [facility] Piperacillin Sod/Tazobactam (Sod 3.375 gm/ Sodium Chloride) 100 mls @ 200 mls/ hr IVPB Q6H [facility] Last Admin: 12/14/16 08:43 Dose: 200 mls/hr Folic Acid 1 mg/ Thiamine HCl 100 mg/ Multivitamins/Vitamin C 10 ml/ Dextrose 1 ,011.2 mls @ 80 mls/hr IV Q24H [facility] Ibuprofen (Motrin Tab) 400 mg PO Q6 PRN PRN Reason: Fever >100.4 F Lorazepam (Ativan) 1 mg IVP Q6H PRN PRN Reason: Anxiety Last Admin: 12/12/16 19:42 Dose: 1 mg - Labs Labs: 12/14/16 07:10 12/14/16 07:10 PT 16.0 SECONDS (9.7-12.2) H 12/11/16 07:59 INR 1.4 12/11/16 07:59 Assessment and Plan (1) Abdominal pain Assessment & Plan: Choledocholithiasis Plan for EUS and ERCP today by Dr Shine Status: Acute (2) Abnormal liver function tests Status: Acute
[2016-12-14] MEDS ORDERED: Lactated Ringer's 1,000 ML IV ONE ×2 (12:35)
--- NOTE | 2016-12-14 13:11 | MRI ---
PROCEDURE: MRI BRAIN WITHOUT CONTRAST HISTORY: mid brain stroke COMPARISON: Comparison is made to the previous CT head dated 12/12/2016 TECHNIQUE: Multiplanar, multisequence MR images of the brain were obtained without intravenous contrast enhancement. FINDINGS: Markedly limited study due to patient's motion. HEMORRHAGE: None DWI: Suspicious for focal diffusion restriction at the posterior aspect of the left vince best seen on image 18 on DWI and ADC map images. BRAIN PARENCHYMA: No mass effect or edema. Moderate atrophy and moderate chronic microvascular white matter ischemic disease. VENTRICLES: Unremarkable. No hydrocephalus. CRANIUM: Unremarkable. ORBITS: Grossly unremarkable. PARANASAL SINUSES/MASTOIDS: Clear VASCULAR SYSTEM: Skull base flow voids intact. OTHER FINDINGS: None. IMPRESSION: Limited study due to patient's motion. Suspicious for sub centimeter focal diffusion restriction at the left posterior aspect of the vince. Moderate atrophy and moderate chronic microvascular ischemic disease.
--- NOTE | 2016-12-14 13:12 | PN ---
DATE: 12/14/2016 TIME OF EVALUATION: 7:00 a.m. 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 PHYSICAL EXAMINATION: VITAL SIGNS: Blood pressure 140/73, mean arterial pressure of 95, respiratory rate of 16, temperature 98.2, and pulse rate 82. NEUROLOGICAL: The patient is sleepy, arousable on calling his name. Immediately calling me who I am. He does not know where he is. He follows just one-step command. Resting tremor noted when he is awake. No cogwheel rigidity. Tone is increasing in all 4 extremities. The patient's examination is unchanged if you compare with my previous examination. The patient was given Sinemet 10/100 three times a day, we will follow with that dose. The patient should have MRI of the brain to rule out any ischemic space occupying lesion at the mid brain. The patient does have neurodegenerative disease affecting extrapyramidal, presenting with basal ganglia dysfunction, mid-brain dysfunction, cerebellar dysfunction as well as the cortical dysfunction consistent with multisystem atrophy versus Lewy body disease. Continue hydration, DVT prophylaxis and physical therapy. Wero Saxena MD
[2016-12-14] MEDS ORDERED: Rocuronium 10 mg/ml (10 ml) ONE (13:55)
--- NOTE | 2016-12-14 15:55 | RAD ---
PROCEDURE: Intraoperative ultrasound HISTORY: ERCP WITH EUS COMPARISON: Not available TECHNIQUE: Intraoperative ultrasound was provided for ERCP and EUS. Total time of fluoroscopy was 162.1 seconds. FINDINGS: Multiple fluoroscopic spot films are submitted. Films are on file for review. IMPRESSION: Fluoroscopy provided.
--- NOTE | 2016-12-14 17:47 | CP.PCM.PN ---
Subjective - Date & Time of Evaluation Date of Evaluation: 12/14/16 Time of Evaluation: 02:30 - Subjective Subjective: Patient seen in recovery- post ERCP- patient sedated- no unusual signs will reasses mental status post op discussion with case manages - regarding discharge planning -will get Objective - Vital Signs/Intake and Output Vital Signs (last 24 hours): Temp Pulse Resp BP Pulse Ox 97.3 F L 62 20 149/82 95 12/14/16 15:44 12/14/16 15:44 12/14/16 15:44 12/14/16 15:44 12/14/16 15:44 Intake and Output: 12/14/16 12/14/16 06:59 18:59 Intake Total 840 0 Balance 840 0 - Medications Medications: Current Medications Acetaminophen (Tylenol 650 Mg Supp) 650 mg [place] Q4 PRN PRN Reason: Fever >100.4 F Carbidopa/Levodopa (Sinemet 10/100) 1 tab PO TID [facility] Last Admin: 12/14/16 17:33 Dose: Not Given Famotidine (Pepcid) 20 mg PO DAILY [facility] Last Admin: 12/14/16 10:15 Dose: Not Given Piperacillin Sod/Tazobactam (Sod 3.375 gm/ Sodium Chloride) 100 mls @ 200 mls/ hr IVPB Q6H [facility] Last Admin: 12/14/16 15:41 Dose: 200 mls/hr Folic Acid 1 mg/ Thiamine HCl 100 mg/ Multivitamins/Vitamin C 10 ml/ Dextrose 1 ,011.2 mls @ 80 mls/hr IV Q24H [facility] Last Admin: 12/14/16 15:41 Dose: 80 mls/hr Ibuprofen (Motrin Tab) 400 mg PO Q6 PRN PRN Reason: Fever >100.4 F Lorazepam (Ativan) 1 mg IVP Q6H PRN PRN Reason: Anxiety Last Admin: 12/14/16 11:31 Dose: 1 mg - Labs Labs: 12/14/16 07:10 12/14/16 07:10 PT 16.0 SECONDS (9.7-12.2) H 12/11/16 07:59 INR 1.4 12/11/16 07:59 - Constitutional Appears: Non-toxic (patient is post op, sedated no unusual movements) - Head Exam Head Exam: ATRAUMATIC, NORMOCEPHALIC - ENT Exam ENT Exam: Mucous Membranes Moist - Respiratory Exam Respiratory Exam: Clear to Ausculation Bilateral, NORMAL BREATHING PATTERN - Cardiovascular Exam Cardiovascular Exam: REGULAR RHYTHM - GI/Abdominal Exam GI & Abdominal Exam: absent: Distended - Extremities Exam Extremities Exam: absent: Pedal Edema - Neurological Exam Neurological Exam: Altered (sedated) Assessment and Plan - Assessment and Plan (Free Text) Assessment: Choledocholitiasis post ERCP- Sepsis- continue antibiotic, cultures negative Dementia with chronic LETTERER microvascular disease - consulted psychiatrist, discharge planning history of hypertension- has been off medication due to non compliance to office visits since last year, BP being monitored still off BP meds-will resume meds accordingly Hypokalemia -resolved Malnutrition-possibly form failure of self care from Dementia reasses mental function after this surgery
--- NOTE | 2016-12-14 21:07 | PN ---
SUBJECTIVE: The patient came back from the OR where the patient went for endoscopy. The patient is cooperative this time, also less confused. The patient was seen by neurology and put on low-dose Sinemet. This patient has long history of Parkinson's disease. The patient however still needs 24-hour assistance but seems to be more manageable. The patient will benefit from sub-acute rehab once medically cleared. PHYSICAL EXAMINATION: VITAL SIGNS: Temperature is 97.5, pulse is 68, blood pressure 150/76, respirations 20, oxygen saturation is 100%. REVIEW OF SYSTEMS: GENERAL: The patient is very drowsy when seen. The patient is still medicated coming from the OR, but other than that he is manageable. The patient is still in the 4-bed observation room for closer monitoring due to his confusion. SKIN: No pruritus. HEENT: No headache. NECK: Supple. RESPIRATORY: No dyspnea. CARDIOVASCULAR: No chest pain. GASTROINTESTINAL: No nausea, no vomiting.Has poor appetite. EXTREMITIES: The patient still has the hand tremors secondary to Parkinson's disease. MUSCULOSKELETAL: Has joint instability. NEUROLOGIC: Drowsy but arousable, still confused and needs 24 hour care.. MENTAL STATUS EXAMINATION: A cachectic-looking male, looked stated age, about 95 pounds. Mood is dysphoric. The patient is sedated. Affect is restricted. Speech is slow. Thought process is confused off and on. Thought content, no overt psychosis. No suicidal or homicidal ideation. Attention and memory seem to be limited. Insight and judgment are limited. Impulse control is improving at this time. IMPRESSION: History of delirium, metabolic encephalopathy superimposed on dementia vascular type. The patient was seen by Dr. Saxena and had a CAT scan of the head earlier which showed moderate cortical atrophy and moderate nonspecific white matter changes. MRI of the brain was done today that showed the following results: The patient has moderate atrophy and moderate chronic microvascular ischemic changes. PLAN AND RECOMMENDATION: The patient seen, meds reviewed. Continue present meds for now. We will keep the patient in observation room. The patient may benefit from subacute rehab for her conditioning once medically cleared; however, the patient's also has medical problems of her own. If the patient's cannot handle him at home after the rehab, the patient may eventually need fci placement. Mayo Renee MD [facility] # [id number] MTDSalvatore
[2016-12-15] MEDS: Piperacillin/Tazobact 3.375 GM in Sodium Chloride 100 ML IVPB SCH ×4 (03:15→20:31)
--- NOTE | 2016-12-15 08:04 | CP.PCM.PN ---
<Stefanie Greenberg - Last Filed: 12/15/16 10:20> Subjective - Date & Time of Evaluation Date of Evaluation: 12/15/16 Time of Evaluation: 08:01 - Subjective Subjective: Gastroenterology Fellow/PGY5 Progress Note Patient denies abdominal pain. Sitter denies issues overnight. No bowel movement. A 12-point review of systems limited in setting of dementia. Objective - Vital Signs/Intake and Output Vital Signs (last 24 hours): Temp Pulse Resp BP Pulse Ox 97.3 F L 86 20 171/77 H 97 12/15/16 04:00 12/15/16 04:00 12/15/16 04:00 12/15/16 04:00 12/15/16 04:00 Intake and Output: 12/15/16 12/15/16 06:59 18:59 Intake Total 740 Output Total 500 Balance 240 - Medications Medications: Current Medications Acetaminophen (Tylenol 650 Mg Supp) 650 mg [place] Q4 PRN PRN Reason: Fever >100.4 F Last Admin: 12/15/16 00:04 Dose: 650 mg Carbidopa/Levodopa (Sinemet 10/100) 1 tab PO TID [facility] Last Admin: 12/14/16 17:33 Dose: Not Given Famotidine (Pepcid) 20 mg PO DAILY [facility] Last Admin: 12/14/16 10:15 Dose: Not Given Piperacillin Sod/Tazobactam (Sod 3.375 gm/ Sodium Chloride) 100 mls @ 200 mls/ hr IVPB Q6H [facility] Last Admin: 12/15/16 03:15 Dose: 200 mls/hr Folic Acid 1 mg/ Thiamine HCl 100 mg/ Multivitamins/Vitamin C 10 ml/ Dextrose 1 ,011.2 mls @ 80 mls/hr IV Q24H [facility] Last Admin: 12/14/16 15:41 Dose: 80 mls/hr Ibuprofen (Motrin Tab) 400 mg PO Q6 PRN PRN Reason: Fever >100.4 F Lorazepam (Ativan) 1 mg IVP Q6H PRN PRN Reason: Anxiety Last Admin: 12/14/16 11:31 Dose: 1 mg - Labs Labs: 12/14/16 07:10 12/14/16 07:10 PT 16.0 SECONDS (9.7-12.2) H 12/11/16 07:59 INR 1.4 08/08/17 07:59 - Constitutional Appears: Non-toxic, No Acute Distress, Cachectic - Head Exam Head Exam: ATRAUMATIC, NORMOCEPHALIC - Eye Exam Eye Exam: EOMI, PERRL Pupil Exam: PERRL. absent: Miosis, Mydriatic - ENT Exam ENT Exam: Mucous Membranes Moist, Normal Oropharynx - Neck Exam Neck Exam: Full ROM, Normal Inspection - Respiratory Exam Respiratory Exam: Clear to Ausculation Bilateral. absent: Rales, Rhonchi, Wheezes - Cardiovascular Exam Cardiovascular Exam: RRR, +S1, +S2. absent: Gallop, Rubs - GI/Abdominal Exam GI & Abdominal Exam: Soft, Normal Bowel Sounds. absent: Distended, Firm, Guarding, Rigid, Tenderness, Organomegaly, Rebound - Extremities Exam Extremities Exam: Normal Inspection - Neurological Exam Neurological Exam: Alert, Awake - Psychiatric Exam Psychiatric exam: Normal Affect, Normal Mood - Skin Skin Exam: Dry, Intact, Normal Color, Warm Assessment and Plan - Assessment and Plan (Free Text) Assessment: 81 year old male with history of Hypertension and microvascular dementia presenting with agitation, obtunded, abdominal pain, and weakness. Active treatment of obstructive jaundice secondary to choledocholithiasis with cholelithiasis POD1 (12/14/16) extended sphincterotomy, balloon sweep, and cholangiography. Unclear history of prior endoscopy evaluation. Plan: >monitor LFTs, trending down >continue Zosyn >surgery managing- follow up recommendations >clear liquid diet as tolerated >supportive care: pain control, anti-emetics >will follow clinical course <Fox Lynne Y - Last Filed: 12/15/16 10:29> Objective - Vital Signs/Intake and Output Vital Signs (last 24 hours): Temp Pulse Resp BP Pulse Ox 97.8 F 86 20 102/69 95 12/15/16 08:00 12/15/16 08:00 12/15/16 08:00 12/15/16 08:00 12/15/16 08:00 Intake and Output: 12/15/16 12/15/16 06:59 18:59 Intake Total 740 Output Total 500 Balance 240 - Medications Medications: Current Medications Acetaminophen (Tylenol 650 Mg Supp) 650 mg [place] Q4 PRN PRN Reason: Fever >100.4 F Last Admin: 12/15/16 00:04 Dose: 650 mg Carbidopa/Levodopa (Sinemet 10/100) 1 tab PO TID [facility] Last Admin: 12/15/16 10:09 Dose: 1 tab Famotidine (Pepcid) 20 mg PO DAILY [facility] Last Admin: 12/15/16 10:10 Dose: 20 mg Piperacillin Sod/Tazobactam (Sod 3.375 gm/ Sodium Chloride) 100 mls @ 200 mls/ hr IVPB Q6H [facility] Last Admin: 12/15/16 08:23 Dose: 200 mls/hr Folic Acid 1 mg/ Thiamine HCl 100 mg/ Multivitamins/Vitamin C 10 ml/ Dextrose 1 ,011.2 mls @ 80 mls/hr IV Q24H [facility] Last Admin: 12/14/16 15:41 Dose: 80 mls/hr Ibuprofen (Motrin Tab) 400 mg PO Q6 PRN PRN Reason: Fever >100.4 F Lorazepam (Ativan) 1 mg IVP Q6H PRN PRN Reason: Anxiety Last Admin: 12/14/16 11:31 Dose: 1 mg - Labs Labs: 12/14/16 07:10 12/14/16 07:10 PT 16.0 SECONDS (9.7-12.2) H 12/11/16 07:59 INR 1.4 12/11/16 07:59 Attending/Attestation - Attestation I have personally seen and examined this patient.: Yes I have fully participated in the care of the patient.: Yes I have reviewed all pertinent clinical information, including history, physical exam and plan: Yes Notes (Text): 12/15/16 10:25 I have seen and examined patient with GI fellow. No acute events overnight, he is seen resting in bed comfortably. As per nursing staff, no reported abdominal pain, nausea, vomiting, fever/chills. Tolerating liquid diet without difficulty. s/p ERCP yesterday with CBD stone extraction and sphincterotomy. Review of vitals from today are normal. HTN Dementia Abdominal pain, jaundice - choledocholithiasis s/p ERCP yesterday as described above - Advance diet as tolerated - LFTs stable, continue to monitor - No further planned advance endoscopic intervention planned, further management as per primary GI team - Will sign off case, please reconsult as necessary, thank you. Case discussed with patient's over telephone.
[2016-12-15 11:02] LABS: BASO % 0.9 % (0.0-2.0); EOS # 0.1 K/uL (0.0-0.7); EOS % 1.8 % (0.0-4.0); LYMPH # 0.5 K/uL (1.0-4.3); LYMPH % 11.5 % (20.0-40.0); MEAN CELL VOLUME 87.2 fL (80.0-94.0); MEAN CORPUSCULAR HEMOGLOBIN 28.9 pg (27.0-31.0); MEAN CORPUSCULAR HGB CONC 33.2 g/dL (33.0-37.0); MEAN PLATELET VOLUME 8.3 fL (7.2-11.7); MONO # 0.4 K/uL (0.0-0.8); MONO % 7.5 % (0.0-10.0); RED CELL DISTRIBUTION WIDTH 15.4 % (11.5-14.5); WHITE BLOOD COUNT 4.7 K/uL (4.8-10.8)
--- NOTE | 2016-12-15 11:03 | CP.PCM.PN ---
Subjective - Date & Time of Evaluation Date of Evaluation: 12/15/16 Time of Evaluation: 08:05 - Subjective Subjective: Patient seen and examined. As per nursing, no acute events over night. Patient denies abdominal pain. Objective - Vital Signs/Intake and Output Vital Signs (last 24 hours): Temp Pulse Resp BP Pulse Ox 97.8 F 86 20 102/69 95 12/15/16 08:00 12/15/16 08:00 12/15/16 08:00 12/15/16 08:00 12/15/16 08:00 Intake and Output: 12/15/16 12/15/16 06:59 18:59 Intake Total 740 Output Total 500 Balance 240 - Medications Medications: Current Medications Acetaminophen (Tylenol 650 Mg Supp) 650 mg [place] Q4 PRN PRN Reason: Fever >100.4 F Last Admin: 12/15/16 00:04 Dose: 650 mg Carbidopa/Levodopa (Sinemet 10/100) 1 tab PO TID [facility] Last Admin: 12/15/16 10:09 Dose: 1 tab Famotidine (Pepcid) 20 mg PO DAILY [facility] Last Admin: 12/15/16 10:10 Dose: 20 mg Piperacillin Sod/Tazobactam (Sod 3.375 gm/ Sodium Chloride) 100 mls @ 200 mls/ hr IVPB Q6H [facility] Last Admin: 12/15/16 08:23 Dose: 200 mls/hr Folic Acid 1 mg/ Thiamine HCl 100 mg/ Multivitamins/Vitamin C 10 ml/ Dextrose 1 ,011.2 mls @ 80 mls/hr IV Q24H [facility] Last Admin: 12/14/16 15:41 Dose: 80 mls/hr Ibuprofen (Motrin Tab) 400 mg PO Q6 PRN PRN Reason: Fever >100.4 F Lorazepam (Ativan) 1 mg IVP Q6H PRN PRN Reason: Anxiety Last Admin: 12/14/16 11:31 Dose: 1 mg - Labs Labs: 12/14/16 07:10 12/14/16 07:10 PT 16.0 SECONDS (9.7-12.2) H 12/11/16 07:59 INR 1.4 12/11/16 07:59 - Constitutional Appears: No Acute Distress - Head Exam Head Exam: NORMOCEPHALIC - Eye Exam Eye Exam: Normal appearance - ENT Exam ENT Exam: Mucous Membranes Moist - Respiratory Exam Respiratory Exam: NORMAL BREATHING PATTERN - Cardiovascular Exam Cardiovascular Exam: +S1, +S2 - GI/Abdominal Exam GI & Abdominal Exam: Soft. absent: Tenderness - Rectal Exam Rectal Exam: NORMAL INSPECTION - Neurological Exam Neurological Exam: Alert - Psychiatric Exam Psychiatric exam: Normal Mood - Skin Skin Exam: Normal Color, Warm Assessment and Plan - Assessment and Plan (Free Text) Assessment: 81yoM with AMS, sepsis, biliary dilation, hyperbilirubinemia, w/ choledocholithiasis s/p ERCP stone removal and sphincterotomy -Recommend cholecystectomy. Due to patient's dementia will have to discuss options with patient's . -F/u labs - Discussed plan with Dr. Jaye Capps PGY-2
--- NOTE | 2016-12-15 11:08 | CP.PCM.PN ---
Subjective - Date & Time of Evaluation Date of Evaluation: 12/15/16 Time of Evaluation: 11:05 - Subjective Subjective: CC: choledocholithiasis Stones removed via ERCP with biliary endoscopist. Chemistries unavailable today. Poor historian, agitated, but does not appear to have abdominal pain Objective - Vital Signs/Intake and Output Vital Signs (last 24 hours): Temp Pulse Resp BP Pulse Ox 97.8 F 86 20 102/69 95 12/15/16 08:00 12/15/16 08:00 12/15/16 08:00 12/15/16 08:00 12/15/16 08:00 Intake and Output: 12/15/16 12/15/16 06:59 18:59 Intake Total 740 Output Total 500 Balance 240 - Medications Medications: Current Medications Acetaminophen (Tylenol 650 Mg Supp) 650 mg [place] Q4 PRN PRN Reason: Fever >100.4 F Last Admin: 12/15/16 00:04 Dose: 650 mg Carbidopa/Levodopa (Sinemet 10/100) 1 tab PO TID [facility] Last Admin: 12/15/16 10:09 Dose: 1 tab Famotidine (Pepcid) 20 mg PO DAILY [facility] Last Admin: 12/15/16 10:10 Dose: 20 mg Piperacillin Sod/Tazobactam (Sod 3.375 gm/ Sodium Chloride) 100 mls @ 200 mls/ hr IVPB Q6H [facility] Last Admin: 12/15/16 08:23 Dose: 200 mls/hr Folic Acid 1 mg/ Thiamine HCl 100 mg/ Multivitamins/Vitamin C 10 ml/ Dextrose 1 ,011.2 mls @ 80 mls/hr IV Q24H [facility] Last Admin: 12/14/16 15:41 Dose: 80 mls/hr Ibuprofen (Motrin Tab) 400 mg PO Q6 PRN PRN Reason: Fever >100.4 F Lorazepam (Ativan) 1 mg IVP Q6H PRN PRN Reason: Anxiety Last Admin: 12/14/16 11:31 Dose: 1 mg - Labs Labs: 12/15/16 10:58 12/14/16 07:10 PT 16.0 SECONDS (9.7-12.2) H 12/11/16 07:59 INR 1.4 12/11/16 07:59 - Constitutional Appears: Unkempt, Agitated, Confused, Chronically Ill - Head Exam Head Exam: NORMOCEPHALIC - Eye Exam Eye Exam: absent: Scleral icterus - Respiratory Exam Respiratory Exam: Clear to Ausculation Bilateral - Cardiovascular Exam Cardiovascular Exam: REGULAR RHYTHM - GI/Abdominal Exam GI & Abdominal Exam: Soft. absent: Tenderness, Organomegaly Assessment and Plan (1) Abdominal pain Assessment & Plan: Resolved S/P CBD stone removal Status: Acute (2) Abnormal liver function tests Assessment & Plan: Anticipate gradual resolution now that biliary stones removed. Monitor LFTs Status: Acute
[2016-12-15 11:11] LABS: CHLORIDE 96 mmol/L (98-107); SODIUM 134 mmol/L (132-148)
[2016-12-15 11:13] LABS: BILIRUBIN,TOTAL 1.5 mg/dL (0.2-1.3); CARBON DIOXIDE 30 mmol/L (22-30); GFR AFRICAN-AMERICAN > 60
[2016-12-15 11:14] LABS: ALB/GLOB RATIO 0.8 (1.0-2.1); ALKALINE PHOSPHATASE 192 U/L (38-126); ALT/SGPT 49 U/L (21-72); AST/SGOT 29 U/L (17-59); BLOOD UREA NITROGEN 4 mg/dL (9-20); CALCIUM 7.9 mg/dl (8.6-10.4); GLUCOSE,RANDOM 95 mg/dL (75-110); TOTAL PROTEIN 5.6 g/dL (6.3-8.3)
[2016-12-15] MEDS: Folic Acid 1 MG, Thiamine 100 MG, Multivitamin (MVI) 10 ML in Dextrose 5% In Water 1,00... IV SCH (12:37)
--- NOTE | 2016-12-15 18:07 | CP.PCM.PN ---
Subjective - Date & Time of Evaluation Date of Evaluation: 12/15/16 Time of Evaluation: 08:30 - Subjective Subjective: Patient seen- no unusual event- patient remained awake alert but disoriented- talking to self, no connection , does not answer questions Objective - Vital Signs/Intake and Output Vital Signs (last 24 hours): Temp Pulse Resp BP Pulse Ox 98.1 F 100 H 20 148/95 H 96 12/15/16 17:02 12/15/16 17:04 12/15/16 17:02 12/15/16 17:02 12/15/16 17:02 Intake and Output: 12/15/16 12/15/16 06:59 18:59 Intake Total 740 580 Output Total 500 600 Balance 240 -20 - Medications Medications: Current Medications Acetaminophen (Tylenol 650 Mg Supp) 650 mg [place] Q4 PRN PRN Reason: Fever >100.4 F Last Admin: 12/15/16 00:04 Dose: 650 mg Carbidopa/Levodopa (Sinemet 10/100) 1 tab PO TID [facility] Last Admin: 12/15/16 17:32 Dose: 1 tab Famotidine (Pepcid) 20 mg PO DAILY [facility] Last Admin: 12/15/16 10:10 Dose: 20 mg Piperacillin Sod/Tazobactam (Sod 3.375 gm/ Sodium Chloride) 100 mls @ 200 mls/ hr IVPB Q6H [facility] Last Admin: 12/15/16 14:03 Dose: 200 mls/hr Folic Acid 1 mg/ Thiamine HCl 100 mg/ Multivitamins/Vitamin C 10 ml/ Dextrose 1 ,011.2 mls @ 80 mls/hr IV Q24H [facility] Last Admin: 12/15/16 12:37 Dose: 80 mls/hr Ibuprofen (Motrin Tab) 400 mg PO Q6 PRN PRN Reason: Fever >100.4 F Lorazepam (Ativan) 1 mg IVP Q6H PRN PRN Reason: Anxiety Last Admin: 12/14/16 11:31 Dose: 1 mg - Labs Labs: 12/15/16 10:58 12/15/16 10:58 PT 16.0 SECONDS (9.7-12.2) H 12/11/16 07:59 INR 1.4 12/11/16 07:59 - Constitutional Appears: Agitated, Confused, Cachectic - Head Exam Head Exam: ATRAUMATIC, NORMOCEPHALIC - Eye Exam Eye Exam: absent: Nystagmus - ENT Exam ENT Exam: Mucous Membranes Moist - Neck Exam Neck Exam: absent: Meningismus - Respiratory Exam Respiratory Exam: Clear to Ausculation Bilateral, NORMAL BREATHING PATTERN - Cardiovascular Exam Cardiovascular Exam: REGULAR RHYTHM - GI/Abdominal Exam GI & Abdominal Exam: Soft. absent: Distended - Extremities Exam Extremities Exam: absent: Joint Swelling, Pedal Edema - Back Exam Back Exam: absent: rash noted - Neurological Exam Neurological Exam: Awake (but is disoriented wit poor connection) - Psychiatric Exam Psychiatric exam: Agitated - Skin Skin Exam: Intact, Normal Color (other than knee abraision that are healing ) Assessment and Plan - Assessment and Plan (Free Text) Assessment: Patient with Dementia- Choledocholithiasis post ERCP- Dementia stable -alert with disorientation agitation- AMS seen by psychiatrist neuro- on meds history of hypertension- monitoring BP-- resume meds as needed Antibiotic for Sepsis- stable, been afebrile planning for discharge /placement/, discussed with case picker /poor contact with
--- NOTE | 2016-12-15 23:18 | PN ---
DATE: 12/15/2016 SUBJECTIVE: The patient is still confused and seen in the safety observation room. According to the staff, the patient has very poor appetite and seems to have problem swallowing. The patient has history of Parkinson's disease. The patient was trying to get out of bed and needs constant redirection. The patient not complaining of pain today, but tends to have bouts of agitation and confusion. He was looking for his today. PHYSICAL EXAMINATION VITAL SIGNS: Temperature is 98.1, pulse rate is 100, blood pressure 148/95, respirations 20, oxygen saturation 96%. GENERAL: The patient is alert, but confused, seen in his room, fidgety, not eating well. SKIN: No diaphoresis. HEENT: No headache or dizziness. NECK: Supple. RESPIRATORY: Dyspnea. CARDIOVASCULAR: Chest pain. GASTROINTESTINAL: Has poor appetite and some problem swallowing. The patient is followed by Neuro. EXTREMITIES: Has hand tremors bilateral. Also has unsteady gait. MUSCULOSKELETAL: Weak. NEUROLOGIC: Alert with periods of confusion. GENITOURINARY: No dysuria. MENTAL STATUS EXAMINATION: Cachectic looking-male, looks stated age. Oriented to place and person at this time. Mood is dysphoric. Affect is restricted. Speech is mumbling at times. Thought process is confused off and on. Thought content, no overt paranoia or hallucination. No suicidal or homicidal ideation. Attention and memory seems to be impaired. Insight and judgment impaired. Impulse control is guarded. IMPRESSION: Metabolic encephalopathy, delirium, superimposed with dementia with behavioral problems. PLAN AND RECOMMENDATION: The patient seen, meds reviewed. Continue present management. The patient followed by Dr. Saxena. The patient is on low dose Sinemet for dementia. The patient has very poor appetite. The patient may benefit from swallowing evaluation to assess if his problems with swallowing is related to his Parkinson's. The patient is currently being treated with Sinemet for Parkinson's. The patient has problem swallowing food, this could cause his appetite. The patient is also followed by GI for his common bile duct gallstone problem. We will give him Ativan 1 mg IV q. 6 hours p.r.n. for now. The patient will benefit from subacute rehab; however, the patient will need 24-hour care if discharged to home. If his elderly cannot provide the care at home, the patient may need fci placement. The patient has progressive dementia with superimposed delirium at this time. Mayo Renee MD
[2016-12-16] MEDS: Piperacillin/Tazobact 3.375 GM in Sodium Chloride 100 ML IVPB SCH ×2 (02:30→08:54)
[2016-12-16 08:57] LABS: CHLORIDE 97 mmol/L (98-107)
[2016-12-16 08:58] LABS: POTASSIUM 3.2 mmol/L (3.6-5.2); SODIUM 135 mmol/L (132-148)
[2016-12-16 09:00] LABS: AST/SGOT 36 U/L (17-59); BILIRUBIN,TOTAL 1.5 mg/dL (0.2-1.3); CARBON DIOXIDE 28 mmol/L (22-30); GFR AFRICAN-AMERICAN > 60
[2016-12-16 09:01] LABS: ALB/GLOB RATIO 0.8 (1.0-2.1); ALKALINE PHOSPHATASE 203 U/L (38-126); ALT/SGPT 26 U/L (21-72); BLOOD UREA NITROGEN 2 mg/dL (9-20); CALCIUM 8.2 mg/dl (8.6-10.4); GLUCOSE,RANDOM 90 mg/dL (75-110)
[2016-12-16] MEDS: Folic Acid 1 MG, Thiamine 100 MG, Multivitamin (MVI) 10 ML in Dextrose 5% In Water 1,00... IV SCH (09:15)
--- NOTE | 2016-12-16 09:18 | CP.PCM.PN ---
Subjective - Date & Time of Evaluation Date of Evaluation: 12/16/16 Time of Evaluation: 07:25 - Subjective Subjective: Pt S&E. No acute events over night. Denies abdominal pain. Objective - Vital Signs/Intake and Output Vital Signs (last 24 hours): Temp Pulse Resp BP Pulse Ox 97 F L 118 H 21 178/92 H 96 12/16/16 08:33 12/16/16 08:33 12/16/16 08:33 12/16/16 08:33 12/16/16 08:33 Intake and Output: 12/16/16 12/16/16 06:59 18:59 Intake Total 750 Output Total 2500 Balance -1750 - Medications Medications: Current Medications Acetaminophen (Tylenol 650 Mg Supp) 650 mg [place] Q4 PRN PRN Reason: Fever >100.4 F Last Admin: 12/15/16 00:04 Dose: 650 mg Carbidopa/Levodopa (Sinemet 10/100) 1 tab PO TID [facility] Last Admin: 12/16/16 09:15 Dose: 1 tab Famotidine (Pepcid) 20 mg PO DAILY [facility] Last Admin: 12/16/16 09:15 Dose: 20 mg Folic Acid 1 mg/ Thiamine HCl 100 mg/ Multivitamins/Vitamin C 10 ml/ Dextrose 1 ,011.2 mls @ 80 mls/hr IV Q24H [facility] Last Admin: 12/16/16 09:15 Dose: 80 mls/hr Ibuprofen (Motrin Tab) 400 mg PO Q6 PRN PRN Reason: Fever >100.4 F Lorazepam (Ativan) 1 mg IVP Q6H PRN PRN Reason: Anxiety Last Admin: 12/14/16 11:31 Dose: 1 mg Potassium Chloride (K-Dur 20 Meq Er Tab) 40 meq PO DAILY [facility] - Labs Labs: 12/15/16 10:58 12/16/16 08:20 PT 16.0 SECONDS (9.7-12.2) H 12/11/16 07:59 INR 1.4 12/11/16 07:59 - Constitutional Appears: No Acute Distress - Head Exam Head Exam: NORMOCEPHALIC - Eye Exam Eye Exam: Normal appearance - ENT Exam ENT Exam: Mucous Membranes Moist - Cardiovascular Exam Cardiovascular Exam: +S1, +S2 - GI/Abdominal Exam GI & Abdominal Exam: Soft - Neurological Exam Neurological Exam: Alert, Awake, Oriented x3 - Psychiatric Exam Psychiatric exam: Normal Mood - Skin Skin Exam: Dry, Warm Assessment and Plan - Assessment and Plan (Free Text) Assessment: 81yoM with AMS, sepsis, biliary dilation, hyperbilirubinemia, w/ choledocholithiasis s/p ERCP stone removal and sphincterotomy -Recommend cholecystectomy. Due to patient's dementia will have to discuss options with patient's . -Replete patient electrolytes - Discussed plan with Dr. Jaye Capps PGY-2
[2016-12-16] MEDS ORDERED: Potassium Chloride 20 mEq ER Tab PO SCH (10:00)
--- NOTE | 2016-12-16 18:09 | CP.PCM.PN ---
Subjective - Date & Time of Evaluation Date of Evaluation: 12/16/16 Time of Evaluation: 08:30 - Subjective Subjective: Patient seen in bed- awake, talking to self, disoriented to three does not answer correctly -poor communication report from Nurse- patient uncooperative with medication and food Objective - Vital Signs/Intake and Output Vital Signs (last 24 hours): Temp Pulse Resp BP Pulse Ox 97.9 F 82 20 129/86 95 12/16/16 15:41 12/16/16 15:41 12/16/16 15:41 12/16/16 15:41 12/16/16 15:41 Intake and Output: 12/16/16 12/16/16 06:59 18:59 Intake Total 750 160 Output Total 2500 1450 Balance -1750 -1290 - Medications Medications: Current Medications Acetaminophen (Tylenol 650 Mg Supp) 650 mg [place] Q4 PRN PRN Reason: Fever >100.4 F Last Admin: 12/15/16 00:04 Dose: 650 mg Carbidopa/Levodopa (Sinemet 10/100) 1 tab PO TID [facility] Last Admin: 12/16/16 17:46 Dose: 1 tab Famotidine (Pepcid) 20 mg PO DAILY [facility] Last Admin: 12/16/16 09:15 Dose: 20 mg Folic Acid 1 mg/ Thiamine HCl 100 mg/ Multivitamins/Vitamin C 10 ml/ Dextrose 1 ,011.2 mls @ 80 mls/hr IV Q24H [facility] Last Admin: 12/16/16 09:15 Dose: 80 mls/hr Potassium Chloride (Potassium Chloride 10 Meq/100 Ml) 10 meq in 100 mls @ 100 mls/hr IVPB ONCE ONE Stop: 12/16/16 18:59 Last Admin: 12/16/16 17:46 Dose: 100 mls/hr Ibuprofen (Motrin Tab) 400 mg PO Q6 PRN PRN Reason: Fever >100.4 F Lorazepam (Ativan) 1 mg IVP Q6H PRN PRN Reason: Anxiety Last Admin: 12/14/16 11:31 Dose: 1 mg Potassium Chloride (K-Dur 20 Meq Er Tab) 40 meq PO DAILY [facility] Last Admin: 12/16/16 11:56 Dose: Not Given - Labs Labs: 12/15/16 10:58 12/16/16 08:20 PT 16.0 SECONDS (9.7-12.2) H 12/11/16 07:59 INR 1.4 12/11/16 07:59 - Constitutional Appears: Non-toxic, Confused (speaking toself. poor communication disoriented ) , Cachectic - Head Exam Head Exam: ATRAUMATIC, NORMOCEPHALIC - Eye Exam Eye Exam: Normal appearance. absent: Nystagmus, Periorbital swelling - ENT Exam ENT Exam: Mucous Membranes Dry - Neck Exam Neck Exam: absent: Meningismus - Respiratory Exam Respiratory Exam: Clear to Ausculation Bilateral, NORMAL BREATHING PATTERN - Cardiovascular Exam Cardiovascular Exam: REGULAR RHYTHM - GI/Abdominal Exam GI & Abdominal Exam: absent: Distended, Tenderness - Extremities Exam Extremities Exam: absent: Pedal Edema - Neurological Exam Neurological Exam: Alert, Altered, Awake - Skin Skin Exam: Intact (except healing abraision knee ) Assessment and Plan - Assessment and Plan (Free Text) Assessment: Patient with DEmentia, with AMS agitation, uncooperative with meds, feeding Malnutrition-secondary to poor po intake, PEG? Hypokalemia being supplemented Hypomagnesemia- to supplement Sepsis- no fever- with response to antibiotic cultures negative Plan for discharge- placement? cant reach - will discuss with staff -
[2016-12-16] MEDS ORDERED: Magnesium Sulfate 1 gm in D5W 1 GM/100 ML BAG IVPB ONE (21:07)
--- NOTE | 2016-12-17 07:04 | PN ---
DATE: 12/16/2016 SUBJECTIVE: The patient is seen. He is more alert, verbal, has periods of confusion. The patient was noted by staff to have poor appetite, but the patient insisting he has no problems, eating regular food and the patient is asking to be given regular food. The patient is for swallowing evaluation in the morning and the patient was started by Dr. Saxena, neurologist, on low dose Sinemet. The patient has history of Parkinson's. PHYSICAL EXAMINATION: VITAL SIGNS: Temperature is 97, pulse rate 98, blood pressure is 179/89. respirations 21, oxygen saturation 96% on nasal cannula. REVIEW OF SYSTEMS: GENERAL: The patient is alert, verbal, but confused, seen in the 4-bedded room, not agitated. SKIN: No pruritus. HEENT: No headache or dizziness. NECK: Supple. RESPIRATORY: No dyspnea. CARDIOVASCULAR: No chest pain. GASTROINTESTINAL: Appetite is poor. No nausea, no vomiting. The patient claims he has no problem swallowing. EXTREMITIES: The patient still has hand tremors secondary to Parkinson's. The patient has been in bed for a while MUSCULOSKELETAL: Weak. NEUROLOGIC: Alert with periods of confusion. GENITOURINARY: No urinary problems. No dysuria. MENTAL STATUS EXAMINATION: Cachectic looking-male, who looks stated age, oriented to place and person, not to time. Mood is dysphoric. Affect is restricted. Speech is spontaneous, garbled at times. Thought process is confused. Thought content, the patient wants to eat regular food but he needs a swallowing evaluation in the morning if he can be transitioned to regular food. No paranoia or hallucination. No suicidal or homicidal ideation. Attention and memory is limited. Insight and judgment is limited. Impulse control is fair at this time. IMPRESSION: History of delirium, metabolic encephalopathy superimposed on dementia with behavioral problem. PLAN AND RECOMMENDATION: The patient is seen, medications reviewed. Continue present management. The patient has swallowing evaluation in the morning. Continue Ativan p.r.n. as ordered. The patient will benefit from subacute rehab once medically cleared. Mayo Renee MD [facility] # [id number] [place]
[2016-12-17 10:48] LABS: CHLORIDE 98 mmol/L (98-107); POTASSIUM 3.4 mmol/L (3.6-5.2); SODIUM 134 mmol/L (132-148)
[2016-12-17 10:50] LABS: GFR AFRICAN-AMERICAN > 60
[2016-12-17 10:51] LABS: BLOOD UREA NITROGEN 3 mg/dL (9-20); CALCIUM 8.6 mg/dl (8.6-10.4); CARBON DIOXIDE 29 mmol/L (22-30); GLUCOSE,RANDOM 82 mg/dL (75-110)
[2016-12-17] MEDS: Folic Acid 1 MG, Thiamine 100 MG, Multivitamin (MVI) 10 ML in Dextrose 5% In Water 1,00... IV SCH (12:22)
[2016-12-17] MEDS: Potassium Chloride 20 mEq/15 ml LIQ UD PO SCH (12:22)
[2016-12-17 13:42] VITALS: RESP 20
--- NOTE | 2016-12-17 15:11 | CP.PCM.PN ---
Subjective - Date & Time of Evaluation Date of Evaluation: 12/17/16 Time of Evaluation: 07:00 - Subjective Subjective: SURGERY PROGRESS NOTE FOR DR. LÓPEZ Patient seen and examines at bedside. He was sleeping comfortably. He is not oriented but states that he is "not too bad" and denies abdominal pain. I spoke with the patient's , Mariza Don, at length on the phone regarding the patient's options for surgery since he is unable to make decisions for himself. The risks and benefits and indications for the surgery were discussed in detail. She was concerned about the risks of surgery, especially given his advanced age, and is declining surgery at this time. She is requesting that he go to rehab and then home. I told her that the surgery can be scheduled electively as an outpatient if she decides to do the surgery at a later date. Objective - Vital Signs/Intake and Output Vital Signs (last 24 hours): Temp Pulse Resp BP Pulse Ox 97.6 F 80 20 112/74 98 12/17/16 13:41 12/17/16 13:41 12/17/16 13:41 12/17/16 13:41 12/17/16 13:41 Intake and Output: 12/17/16 12/17/16 06:59 18:59 Intake Total 660 Output Total 1350 Balance -690 - Medications Medications: Current Medications Acetaminophen (Tylenol 650 Mg Supp) 650 mg [place] Q4 PRN PRN Reason: Fever >100.4 F Last Admin: 12/15/16 00:04 Dose: 650 mg Carbidopa/Levodopa (Sinemet 10/100) 1 tab PO TID [facility] Last Admin: 12/17/16 13:54 Dose: 1 tab Famotidine (Pepcid) 20 mg PO DAILY [facility] Last Admin: 12/17/16 10:04 Dose: 20 mg Folic Acid 1 mg/ Thiamine HCl 100 mg/ Multivitamins/Vitamin C 10 ml/ Dextrose 1 ,011.2 mls @ 80 mls/hr IV Q24H [facility] Last Admin: 12/17/16 12:22 Dose: 80 mls/hr Ibuprofen (Motrin Tab) 400 mg PO Q6 PRN PRN Reason: Fever >100.4 F Lorazepam (Ativan) 1 mg IVP Q6H PRN PRN Reason: Anxiety Last Admin: 12/14/16 11:31 Dose: 1 mg Potassium Chloride (Potassium Chloride Oral Soln) 20 meq PO DAILY [facility] Stop: 12/20/16 11:16 Last Admin: 12/17/16 12:22 Dose: 20 meq - Labs Labs: 12/15/16 10:58 12/17/16 10:24 PT 16.0 SECONDS (9.7-12.2) H 12/11/16 07:59 INR 1.4 12/11/16 07:59 - Constitutional Appears: Non-toxic, No Acute Distress, Confused - Respiratory Exam Respiratory Exam: NORMAL BREATHING PATTERN. absent: Respiratory Distress - Cardiovascular Exam Cardiovascular Exam: +S1, +S2 - GI/Abdominal Exam GI & Abdominal Exam: Soft. absent: Distended, Guarding, Tenderness, Rebound - Neurological Exam Neurological Exam: Awake. absent: Oriented x3 - Skin Skin Exam: Dry, Warm Assessment and Plan - Assessment and Plan (Free Text) Assessment: 81yoM with AMS, sepsis, choledocholithiasis s/p ERCP with stone removal and sphincterotomy on 12/14 - Afebrile, VSS - T bili improving - Recommend cholecystectomy. Due to patient's dementia, discussed options with patient's . She is declining surgery at this time. She wishes for patient to go to rehab - May follow up for Dr. López as an outpatient to schedule elective cholecystectomy if patient and patient's decide they would like surgery - Discussed plan with Dr. Jaye Saenz PGY-3
--- NOTE | 2016-12-17 17:09 | CP.PCM.PN ---
Subjective - Date & Time of Evaluation Date of Evaluation: 12/17/16 Time of Evaluation: 02:00 - Subjective Subjective: Patient seen- patient recognizes me , good discussion condition and plan discussed phoned - and discussed plan of discharge to subacute swallow eval ongoing Objective - Vital Signs/Intake and Output Vital Signs (last 24 hours): Temp Pulse Resp BP Pulse Ox 97.7 F 79 20 126/74 97 12/17/16 16:04 12/17/16 16:04 12/17/16 16:04 12/17/16 16:04 12/17/16 16:04 Intake and Output: 12/17/16 12/17/16 06:59 18:59 Intake Total 660 960 Output Total 1350 Balance -690 960 - Medications Medications: Current Medications Acetaminophen (Tylenol 650 Mg Supp) 650 mg [place] Q4 PRN PRN Reason: Fever >100.4 F Last Admin: 12/15/16 00:04 Dose: 650 mg Carbidopa/Levodopa (Sinemet 10/100) 1 tab PO TID [facility] Last Admin: 12/17/16 13:54 Dose: 1 tab Famotidine (Pepcid) 20 mg PO DAILY [facility] Last Admin: 12/17/16 10:04 Dose: 20 mg Folic Acid 1 mg/ Thiamine HCl 100 mg/ Multivitamins/Vitamin C 10 ml/ Dextrose 1 ,011.2 mls @ 80 mls/hr IV Q24H [facility] Last Admin: 12/17/16 12:22 Dose: 80 mls/hr Ibuprofen (Motrin Tab) 400 mg PO Q6 PRN PRN Reason: Fever >100.4 F Lorazepam (Ativan) 1 mg IVP Q6H PRN PRN Reason: Anxiety Last Admin: 12/14/16 11:31 Dose: 1 mg Potassium Chloride (Potassium Chloride Oral Soln) 20 meq PO DAILY [facility] Stop: 12/20/16 11:16 Last Admin: 12/17/16 12:22 Dose: 20 meq - Labs Labs: 12/15/16 10:58 12/17/16 10:24 PT 16.0 SECONDS (9.7-12.2) H 12/11/16 07:59 INR 1.4 12/11/16 07:59 - Constitutional Appears: Non-toxic, Cachectic (looks weak, but is now oriented to person) - Head Exam Head Exam: ATRAUMATIC, NORMOCEPHALIC - Eye Exam Eye Exam: Normal appearance. absent: Nystagmus - ENT Exam ENT Exam: Mucous Membranes Dry - Respiratory Exam Respiratory Exam: Clear to Ausculation Bilateral, NORMAL BREATHING PATTERN - Cardiovascular Exam Cardiovascular Exam: REGULAR RHYTHM - GI/Abdominal Exam GI & Abdominal Exam: Soft, Normal Bowel Sounds. absent: Distended, Tenderness - Extremities Exam Extremities Exam: absent: Pedal Edema, Tenderness - Back Exam Back Exam: absent: rash noted - Neurological Exam Neurological Exam: Alert, Awake (bedridden, weak to ambulate) Assessment and Plan - Assessment and Plan (Free Text) Assessment: Patient with sepsis- improving Choledocholithiasis post ERCP Hypokalemia- on supplementation Malnutrition- dietary supplementation Debility- for Pt rehab discussed with patient and staff
--- NOTE | 2016-12-17 19:49 | PN ---
SUBJECTIVE: The patient is seen. The patient went for swallowing evaluation today and his diet was advanced. The patient stated he is feeling better and although still has periods of confusion. He is looking for his . The patient wants to go home. The patient's behavior seems to be much better; however, he is still confused off and on. PHYSICAL EXAMINATION VITAL SIGNS: Temperature is 97.8, pulse rate is 80, blood pressure 112/74, respirations 20, oxygen saturation 98% on nasal cannula. REVIEW OF SYSTEMS: The patient is more alert, verbal, conversant, seen in the 4-bedded room. SKIN: No diaphoresis. HEENT: No headache or dizziness. NECK: Supple. RESPIRATORY: Dyspnea. CARDIOVASCULAR: No chest pain. GASTROINTESTINAL: No nausea or vomiting. The patient seems to be better. EXTREMITIES: Still has hand tremors secondary to Parkinson's. The patient has been spending most time in bed, has not been ambulating. MUSCULOSKELETAL: Generalized weakness. NEUROLOGIC: Alert with periods of confusion. According to the upper caser, the patient's as well as the patient are willing to go to the subacute rehab for reconditioning. MENTAL STATUS EXAMINATION: Elderly male who is cachectic looking, oriented to place and person, not to time. Mood is dysphoric. Affect is restricted. Speech is more spontaneous. Thought process is still confused off and on. Thought content, the patient wants to go home. He wants to eat also regular food. His diet has been advanced. As stated, no psychosis. No suicidal or homicidal ideation. Attention and memory seems to be limited. Insight and judgment is limited. Impulse control is fair at this time. IMPRESSION: Delirium, metabolic encephalopathy, improving, superimposed on dementia with behavioral problems, improving. PLAN AND RECOMMENDATION: The patient is seen, medications reviewed. Continue present management. Continue Ativan p.r.n. as ordered. We will keep the patient in the safety observation room for monitoring. The patient will benefit from subacute rehab once medically cleared. Mayo Renee MD [place]
--- NOTE | 2016-12-18 09:24 | CP.PCM.PN ---
Subjective - Date & Time of Evaluation Date of Evaluation: 12/18/16 Time of Evaluation: 07:00 - Subjective Subjective: SURGERY PROGRESS NOTE FOR DR. LÓPEZ Patient seen and examines at bedside. He was sleeping comfortably. He is not oriented but denies pain. Did not answer any other questions. I spoke with the patient's , Mariza Don, at length on the phone yesterday regarding the patient's options for surgery since he is unable to make decisions for himself. The risks and benefits and indications for the surgery were discussed in detail. She was concerned about the risks of surgery, especially given his advanced age, and is declining surgery at this time. She is requesting that he go to rehab and then home. I told her that the surgery can be scheduled electively as an outpatient if she decides to do the surgery at a later date. Spoke with pillowcase cutter. The patient is not accepted to a rehab facility yet but they are working on it. Objective - Vital Signs/Intake and Output Vital Signs (last 24 hours): Temp Pulse Resp BP Pulse Ox 98.2 F 76 20 131/80 96 12/18/16 01:00 12/18/16 01:00 12/18/16 01:00 12/18/16 01:00 12/18/16 01:00 Intake and Output: 12/18/16 12/18/16 06:59 18:59 Intake Total 600 Output Total 1200 Balance -600 - Medications Medications: Current Medications Acetaminophen (Tylenol 650 Mg Supp) 650 mg [place] Q4 PRN PRN Reason: Fever >100.4 F Last Admin: 12/15/16 00:04 Dose: 650 mg Carbidopa/Levodopa (Sinemet 10/100) 1 tab PO TID [facility] Last Admin: 12/17/16 17:44 Dose: 1 tab Famotidine (Pepcid) 20 mg PO DAILY [facility] Last Admin: 12/17/16 10:04 Dose: 20 mg Folic Acid 1 mg/ Thiamine HCl 100 mg/ Multivitamins/Vitamin C 10 ml/ Dextrose 1 ,011.2 mls @ 80 mls/hr IV Q24H [facility] Last Admin: 12/17/16 12:22 Dose: 80 mls/hr Ibuprofen (Motrin Tab) 400 mg PO Q6 PRN PRN Reason: Fever >100.4 F Lorazepam (Ativan) 1 mg IVP Q6H PRN PRN Reason: Anxiety Last Admin: 12/14/16 11:31 Dose: 1 mg Potassium Chloride (Potassium Chloride Oral Soln) 20 meq PO DAILY [facility] Stop: 12/20/16 11:16 Last Admin: 12/17/16 12:22 Dose: 20 meq - Labs Labs: 12/15/16 10:58 12/17/16 10:24 PT 16.0 SECONDS (9.7-12.2) H 12/11/16 07:59 INR 1.4 12/11/16 07:59 - Constitutional Appears: Non-toxic, No Acute Distress, Confused - Respiratory Exam Respiratory Exam: NORMAL BREATHING PATTERN. absent: Respiratory Distress - Cardiovascular Exam Cardiovascular Exam: +S1, +S2 - GI/Abdominal Exam GI & Abdominal Exam: Soft. absent: Distended, Guarding, Rigid, Tenderness - Neurological Exam Neurological Exam: absent: Oriented x3 Assessment and Plan - Assessment and Plan (Free Text) Assessment: 81yoM with AMS, sepsis, choledocholithiasis s/p ERCP with stone removal and sphincterotomy on 12/14 - Afebrile, VSS - AM labs pending - Recommend cholecystectomy. Due to patient's dementia, discussed options with patient's yesterday. She is declining surgery at this time. She wishes for patient to go to rehab - May follow up for Dr. López as an outpatient to schedule elective cholecystectomy if patient and patient's decide they would like surgery - Discussed plan with Dr. Jaye Saenz PGY-3
[2016-12-18 09:51] VITALS: BP 129/69; PULSE 65; TEMP 97.8; O2SAT 93
[2016-12-18] MEDS: Potassium Chloride 20 mEq/15 ml LIQ UD PO SCH (10:15)
[2016-12-18] MEDS: Folic Acid 1 MG, Thiamine 100 MG, Multivitamin (MVI) 10 ML in Dextrose 5% In Water 1,00... IV SCH (10:15)
[2016-12-18 12:04] LABS: CHLORIDE 98 mmol/L (98-107); POTASSIUM 4.3 mmol/L (3.6-5.2); SODIUM 134 mmol/L (132-148)
[2016-12-18 12:06] LABS: ALKALINE PHOSPHATASE 186 U/L (38-126); AST/SGOT 31 U/L (17-59); BILIRUBIN,TOTAL 1.2 mg/dL (0.2-1.3); CARBON DIOXIDE 29 mmol/L (22-30); GFR AFRICAN-AMERICAN > 60; TOTAL PROTEIN 6.2 g/dL (6.3-8.3)
[2016-12-18 12:07] LABS: ALB/GLOB RATIO 0.9 (1.0-2.1); ALT/SGPT 31 U/L (21-72); BLOOD UREA NITROGEN 4 mg/dL (9-20); CALCIUM 8.8 mg/dl (8.6-10.4); GLUCOSE,RANDOM 88 mg/dL (75-110)
--- NOTE | 2016-12-18 18:49 | CP.PCM.PN ---
Subjective - Date & Time of Evaluation Date of Evaluation: 12/18/16 Time of Evaluation: 04:00 - Subjective Subjective: Patient seen- alert, awake- on and off orientation , answers questions, sometimes correctly, slow to responds, discussed condition and plan stable no unusual events Objective - Vital Signs/Intake and Output Vital Signs (last 24 hours): Temp Pulse Resp BP Pulse Ox 97.8 F 65 20 129/69 93 L 12/18/16 08:30 12/18/16 08:30 12/18/16 08:30 12/18/16 08:30 12/18/16 08:30 Intake and Output: 12/18/16 12/18/16 06:59 18:59 Intake Total 600 Output Total 1200 Balance -600 - Medications Medications: Current Medications Acetaminophen (Tylenol 650 Mg Supp) 650 mg [place] Q4 PRN PRN Reason: Fever >100.4 F Last Admin: 12/15/16 00:04 Dose: 650 mg Carbidopa/Levodopa (Sinemet 10/100) 1 tab PO TID [facility] Last Admin: 12/18/16 18:23 Dose: 1 tab Famotidine (Pepcid) 20 mg PO DAILY [facility] Last Admin: 12/18/16 10:16 Dose: 20 mg Folic Acid 1 mg/ Thiamine HCl 100 mg/ Multivitamins/Vitamin C 10 ml/ Dextrose 1 ,011.2 mls @ 80 mls/hr IV Q24H [facility] Last Admin: 12/18/16 10:15 Dose: 80 mls/hr Ibuprofen (Motrin Tab) 400 mg PO Q6 PRN PRN Reason: Fever >100.4 F Lorazepam (Ativan) 1 mg IVP Q6H PRN PRN Reason: Anxiety Last Admin: 12/14/16 11:31 Dose: 1 mg - Labs Labs: 12/15/16 10:58 12/18/16 11:39 PT 16.0 SECONDS (9.7-12.2) H 12/11/16 07:59 INR 1.4 12/11/16 07:59 - Constitutional Appears: Non-toxic, No Acute Distress - Head Exam Head Exam: ATRAUMATIC - ENT Exam ENT Exam: Mucous Membranes Moist - Neck Exam Neck Exam: Full ROM - Respiratory Exam Respiratory Exam: Clear to Ausculation Bilateral, NORMAL BREATHING PATTERN - Cardiovascular Exam Cardiovascular Exam: REGULAR RHYTHM - GI/Abdominal Exam GI & Abdominal Exam: Soft, Normal Bowel Sounds. absent: Distended, Tenderness - Neurological Exam Neurological Exam: Alert (but remained bedridden), Awake (but orientation to person on and off generally disoriented ) - Skin Skin Exam: Intact, Normal Color Assessment and Plan - Assessment and Plan (Free Text) Assessment: Patient admitted for Sepsis- post antibiotic improved Post ERCP for Choledocholithiasis, no abdominal complaints Hypokalemia improved Hypertension been off meds-and controlled Dementia- on meds Malnutrition- poor po intake Normal swallow eval supportive as per recommendation Debility for rehab PT
--- NOTE | 2016-12-18 18:54 | CP.PCM.DIS ---
Provider - Provider Date of Admission: 12/10/16 08:20 Attending physician: Lakeisha Saeed MD Time Spent in preparation of Discharge (in minutes): 30 Hospital Course - Lab Results Lab Results: Micro Results 12/10/16 09:15 Blood-Venous Blood Culture - Final NO GROWTH AFTER 5 DAYS 12/10/16 09:15 Blood-Venous Gram Stain - Final TEST NOT PERFORMED 12/10/16 08:45 Blood-Venous Blood Culture - Final NO GROWTH AFTER 5 DAYS 12/10/16 08:45 Blood-Venous Gram Stain - Final TEST NOT PERFORMED 12/10/16 Unknown Urine,Random Urine Culture - Final 10-50,000 CFU/ML. MULTIPLE SPECIES. PROBABLE CONTAMINATION. Most Recent Lab Values WBC 4.7 K/uL (4.8-10.8) L 12/15/16 10:58 RBC 3.67 Mil/uL (4.40-5.90) L 12/15/16 10:58 Hgb 10.6 g/dL (12.0-18.0) L 12/15/16 10:58 Hct 32.0 % (35.0-51.0) L 12/15/16 10:58 MCV 87.2 fL (80.0-94.0) 12/15/16 10:58 MCH 28.9 pg (27.0-31.0) 12/15/16 10:58 MCHC 33.2 g/dL (33.0-37.0) 12/15/16 10:58 RDW 15.4 % (11.5-14.5) H 12/15/16 10:58 Plt Count 164 K/uL (130-400) 12/15/16 10:58 MPV 8.3 fL (7.2-11.7) 12/15/16 10:58 Neut % (Auto) 78.3 % (50.0-75.0) H 12/15/16 10:58 Lymph % (Auto) 11.5 % (20.0-40.0) L 12/15/16 10:58 [place] % (Auto) 7.5 % (0.0-10.0) 12/15/16 10:58 Eos % (Auto) 1.8 % (0.0-4.0) 12/15/16 10:58 Baso % (Auto) 0.9 % (0.0-2.0) 12/15/16 10:58 Neut # 3.7 K/uL (1.8-7.0) 12/15/16 10:58 Lymph # 0.5 K/uL (1.0-4.3) L 12/15/16 10:58 [place] # 0.4 K/uL (0.0-0.8) 12/15/16 10:58 Eos # 0.1 K/uL (0.0-0.7) 12/15/16 10:58 Baso # 0.0 K/uL (0.0-0.2) 12/15/16 10:58 Neutrophils % (Manual) 95 % (50-75) H 12/11/16 07:59 Lymphocytes % (Manual) 1 % (20-40) L 12/11/16 07:59 Monocytes % (Manual) 4 % (0-10) 12/11/16 07:59 Platelet Estimate Normal (NORMAL) 12/11/16 07:59 RBC Morphology Normal 12/11/16 07:59 Anisocytosis (manual) Slight 12/10/16 05:11 ESR 50 mm/hr (0-15) H 12/14/16 07:10 PT 16.0 SECONDS (9.7-12.2) H 12/11/16 07:59 INR 1.4 12/11/16 07:59 pO2 18 mm/Hg (30-55) L 12/10/16 09:13 VBG pH 7.44 (7.32-7.43) H 12/10/16 09:13 VBG pCO2 53 mmHg (40-60) 12/10/16 09:13 VBG HCO3 30.8 mmol/L 12/10/16 09:13 VBG Total CO2 37.6 mmol/L (22-28) H 12/10/16 09:13 VBG O2 Sat (Calc) 35.0 % (40-65) L 12/10/16 09:13 VBG Base Excess 9.9 mmol/L (0.0-2.0) H 12/10/16 09:13 VBG Potassium 3.1 mmol/L (3.6-5.2) L 12/10/16 09:13 Sodium 137.0 mmol/l (132-148) 12/10/16 09:13 Chloride 100.0 mmol/L (98-107) 12/10/16 09:13 Glucose 96 mg/dl (75-110) 12/10/16 09:13 Lactate 1.8 mmol/L (0.7-2.1) 12/10/16 09:13 Sodium 134 mmol/L (132-148) 12/18/16 11:39 Potassium 4.3 mmol/L (3.6-5.2) 12/18/16 11:39 Chloride 98 mmol/L (98-107) 12/18/16 11:39 Carbon Dioxide 29 mmol/L (22-30) 12/18/16 11:39 Anion Gap 10 (10-20) 12/18/16 11:39 BUN 4 mg/dL (9-20) L 12/18/16 11:39 Creatinine 0.6 MG/DL (0.8-1.5) L 12/18/16 11:39 Est GFR ( Amer) > 60 12/18/16 11:39 Est GFR (Non-Af Amer) > 60 12/18/16 11:39 Random Glucose 88 mg/dL (75-110) 12/18/16 11:39 Calcium 8.8 mg/dl (8.6-10.4) 12/18/16 11:39 Magnesium 1.4 mg/dL (1.6-2.3) L 12/13/16 07:12 Total Bilirubin 1.2 mg/dL (0.2-1.3) 12/18/16 11:39 Direct Bilirubin 4.3 mg/dL (0.0-0.4) H 12/11/16 07:59 AST 31 U/L (17-59) 12/18/16 11:39 ALT 31 U/L (21-72) 12/18/16 11:39 Alkaline Phosphatase 186 U/L (38-126) H 12/18/16 11:39 Troponin I 0.0170 ng/mL (0.00-0.120) 12/10/16 05:11 C-React Prot High Sens > 15.00 mg/L (1.00-3.00) H 12/14/16 07:10 Total Protein 6.2 g/dL (6.3-8.3) L 12/18/16 11:39 Albumin 2.9 g/dL (3.5-5.0) L 12/18/16 11:39 Globulin 3.3 gm/dL (2.2-3.9) 12/18/16 11:39 Albumin/Globulin Ratio 0.9 (1.0-2.1) L 12/18/16 11:39 Ceruloplasmin 28 mg/dL (18-36) 12/14/16 07:10 Lipase 13 U/L (23-300) L 12/10/16 05:11 Vitamin B12 615 pg/mL (239-931) 12/12/16 19:43 Folate 4.2 ng/mL 12/12/16 19:43 TSH 3rd Generation 1.68 mIU/L (0.46-4.68) 12/12/16 19:43 Venous Blood Potassium 3.1 mmol/L (3.6-5.2) L 12/10/16 09:13 Urine Color Apryl (YELLOW) 12/10/16 06:35 Urine Clarity Clear (Clear) 12/10/16 06:35 Urine pH 5.0 (5.0-8.0) 12/10/16 06:35 Ur Specific [place] 1.019 (1.003-1.030) 12/10/16 06:35 Urine Protein 1+ mg/dL (NEGATIVE) H 12/10/16 06:35 Urine Glucose (UA) Normal mg/dL (Normal) 12/10/16 06:35 Urine Ketones Negative mg/dL (NEGATIVE) 12/10/16 06:35 Urine Blood Negative (NEGATIVE) 12/10/16 06:35 Urine Nitrate Negative (NEGATIVE) 12/10/16 06:35 Urine Bilirubin 2+ (NEGATIVE) H 12/10/16 06:35 Urine Urobilinogen 4.0 mg/dL (0.2-1.0) 12/10/16 06:35 Ur Leukocyte Esterase Neg [place]/uL (Negative) 12/10/16 06:35 Urine WBC (Auto) 5 /hpf (0-5) 12/10/16 06:35 Urine RBC (Auto) 2 /hpf (0-3) 12/10/16 06:35 Ur Squamous Epith Cells 1 /hpf (0-5) 12/10/16 06:35 Urine Bacteria Rare (<OCC) 12/10/16 06:35 RPR Nonreactive (NONREACTIVE) 12/14/16 07:10 - Hospital Course Hospital Course: admitted for abdominal pain fever leucocytosis meets criteria for sepis- started on antibiotic cultures negative- improved found to have choledocholithisis- ERCP done and abdominal pain resolved Dementia symptoms debility weakness- seen by psychiatry and neuroi medication started stable- transfer to rehab .discussed with staff and patient Discharge Exam - Head Exam Head Exam: ATRAUMATIC - Eye Exam Eye Exam: absent: Nystagmus - ENT Exam ENT Exam: Mucous Membranes Moist - Neck Exam Neck exam: Full Rom - Respiratory Exam Respiratory Exam: Clear to PA & Lateral, NORMAL BREATHING PATTERN - Cardiovascular Exam Cardiovascular Exam: REGULAR RHYTHM - GI/Abdominal Exam GI & Abdominal Exam: Normal Bowel Sounds, Soft. absent: Distended, Tenderness - Extremities Exam Extremities exam: full ROM, pedal pulses present - Back Exam Back exam: absent: rash noted - Neurological Exam Neurological exam: Alert, Altered (bed ridden) - Psychiatric Exam Psychiatric exam: Agitated (at times, disoriented, orientation to me wax and wane ) - Skin Skin Exam: Intact, Normal Color Discharge Plan - Discharge Medications Prescriptions: Folic Acid 1 mg PO DAILY #30 tab Multivitamin [Multiple Vitamins] 1 each PO DAILY #30 tablet - Follow Up Plan Condition: STABLE Disposition: HOME/ ROUTINE Instructions: Pneumococcal Polyvalent Vaccine (By injection), Folic Acid (By mouth), Multivitamins with Minerals (By mouth), Hib Vaccine (DC), Hypokalemia ( DC), ERCP (Endoscopic Retrograde Cholangiopancreatography) (DC), Leukocytosis ( DC), Full Liquid Diet (DC) Referrals: Lakeisha Saeed MD [Medical Doctor] -
--- NOTE | 2016-12-19 08:37 | PN ---
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 PHYSICAL EXAMINATION: VITAL SIGNS: Blood pressure of 178/92, mean artery pressure of 120, respiratory rate of 16, temperature of 97 degree, and pulse rate is 98. GENERAL: The patient is awake and alert . Speech is intact. NEUROLOGIC: Follows one-step command only confused. All extremities are increase in tone. Resting tremor noted. IMPRESSION: The patient is tolerating the Sinemet dose 3 times a day. Continue the present management. When medically stable, the patient can get acetylcholinesterase inhibitors for history of dementia. PLAN: From a neurological point of view, no further intervention is needed. Continue the supportive care, getting out of the bed and a physical therapy to be started. Wero Saxena MD
== END 2016-12-18 19:00 | DRG 871 ==
LOC: C.ER 04:03 → C.9E 08:20 → C.5T 14:23
PROVIDERS: ADMIT Internal Medicine; ATTEND Internal Medicine
PROC: 0DJ08ZZ Inspection of Upper Intestinal Tract, Via Natural or Artificial Opening Endoscopic (ICD-10-PCS; 2016-12-14)
PROC: 0FC98ZZ Extirpation of Matter from Common Bile Duct, Via Natural or Artificial Opening Endoscopic (ICD-10-PCS; principal; 2016-12-14 12:39)
DX: A41.9 Sepsis, unspecified organism (principal); G93.41 Metabolic encephalopathy; E46 Unspecified protein-calorie malnutrition; F01.51 Vascular dementia, unspecified severity, with behavioral disturbance; G20 Parkinson's disease; K80.61 Calculus of gallbladder and bile duct with cholecystitis, unspecified, with obstruction; E83.42 Hypomagnesemia; G25.9 Extrapyramidal and movement disorder, unspecified; N28.1 Cyst of kidney, acquired; E86.0 Dehydration; E87.6 Hypokalemia; N40.0 Benign prostatic hyperplasia without lower urinary tract symptoms; I10 Essential (primary) hypertension; E78.5 Hyperlipidemia, unspecified; F17.210 Nicotine dependence, cigarettes, uncomplicated; G62.9 Polyneuropathy, unspecified; K76.89 Other specified diseases of liver